=== PATIENT | male | born 1945 | race Caucasian/White ===

== ENCOUNTER 2019-11-17 09:18 | Inpatient (IN) ==
[2019-11-17] MEDS ORDERED: ALBUT/IPRATROP 3MG/0.5MG NEB 3 ML VIAL NEB STA (09:34)
--- NOTE | 2019-11-17 10:11 | XRay Report ---
XR chest 1V portable HISTORY: 74 years-old Male Dyspnea acute shortness of breath COMPARISON: None available TECHNIQUE: Portable AP view of the chest FINDINGS: Cardiomediastinal and hilar silhouettes are within normal limits. Retrocardiac opacity suggests small hiatal hernia. Mild hyperinflation. There is no pneumothorax, large pleural effusion or focal airspa ce consolidation typical for pneumonia. Mild interstitial coarsening, likely on a chronic basis. Dege nerative changes of the shoulders and spine. IMPRESSION: 1. Hyperinflation with mild interstitial coarsening, possibly on a chronic basis. Correlate with prio r imaging. 2. Small hiatal hernia. 3. No definite evidence of pneumonia. ACT 112: Negative or not required by law. The above report was generated using voice recognition software. It may contain grammatical, syntax o r spelling errors. Electronically signed by: Chaim Stevens M.D. 11/17/2019 10:09 AM
[2019-11-17 10:16] LABS: Basophils # (auto) 0.04 K/uL (0-0.2); Basophils % (auto) 0.4 %; Eosinophils # (auto) 0.21 K/uL (0-0.5); Eosinophils % (auto) 2.3 %; Hematocrit (blood only) 46.1 % (42-52); Hemoglobin 15.3 g/dL (14.0-18.0); Immature Granulocytes # (auto) 0.01 K/uL (0.00-0.02); Immature Granulocytes % (auto) 0.1 %; Lymphocytes # (auto) 1.11 K/uL (1.2-3.4); Lymphocytes % (auto) 12.3 %; Mean Corpuscular Hemoglobin 33.5 pg (25-34); Mean Corpuscular Hgb Conc 33.2 g/dL (32-36); Mean Corpuscular Volume 100.9 fL (80-100); Monocytes % (auto) 5.5 %; Neutrophils # (auto) 7.14 K/uL (1.4-6.5); Neutrophils % (auto) 79.4 %; Platelet Count 137 K/uL (130-400); RDW Coefficient of Variation 14.1 % (11.5-14.5); RDW Standard Deviation 52.2 fL (36.4-46.3); Red Blood Count 4.57 M/uL (4.7-6.1); White Blood Count 9.01 K/uL (4.8-10.8)
[2019-11-17 10:20] LABS: Base Excess VBG 1.9 mEq/L; Oxygen Saturation VBG 60.4 %; pH VBG 7.38 (7.36-7.41)
[2019-11-17 10:34] LABS: INR 1.1 (0.9-1.1); Partial Thromboplastin Ratio 0.9; Partial Thromboplastin Time 25.4 Seconds (21.0-31.0); Prothrombin Time 11.2 Seconds (9.0-12.0)
[2019-11-17 10:35] LABS: D Dimer 14540 ug/L FEU (0-500)
[2019-11-17 10:43] LABS: Alanine Aminotransferase 28 U/L (12-78); Albumin Level 3.1 gm/dl (3.4-5.0); Aspartate Aminotransferase 21 U/L (15-37); BUN Creatinine Ratio 20.7 (10-20); Blood Urea Nitrogen 25 mg/dl (7-18); Calcium 8.5 mg/dl (8.5-10.1); Carbon Dioxide 29 mmol/L (21-32); Chloride 108 mmol/L (98-107); Est GFR (African American) 68.6; Est GFR (Non-African American) 59.2; Glucose 173 mg/dl (70-99); Magnesium 2.4 mg/dl (1.8-2.4); Potassium 4.7 mmol/L (3.5-5.1); Sodium 144 mmol/L (136-145)
[2019-11-17 10:52] LABS: Albumin Globulin Ratio 0.9 (0.9-2); Alkaline Phosphatase 63 U/L (45-117); Bilirubin,Total 0.6 mg/dl (0.2-1); Globulin 3.3 gm/dl (2.5-4.0); NT Pro B Type Natriuretic Pept 3269 pg/ml (0-900); Total Protein 6.4 gm/dl (6.4-8.2); Troponin I 0.733 ng/ml (0-0.045)
[2019-11-17] MEDS ORDERED: OPTIRAY 320 125ml IV PRN (11:16)
[2019-11-17] MEDS ORDERED: HEPARIN SOD (PORCINE) 1000 UNIT/ML 10 ML VIAL ONE (11:41)
--- NOTE | 2019-11-17 11:43 | CT Scan Report ---
CT angio chest PE protocol CT DOSE: 936.01 mGy.cm HISTORY: 74 years-old Male with PE. Acute shortness of breath with midsternal chest pain TECHNIQUE: Multiple CTA images of the chest were obtained after the intravenous administration of 120 ml Optiray 320. Coronal and sagittal MIPS were obtained from the axial data set and were submitted for review. All measurements were obtained according to NASCET criteria. A dose lowering technique w as utilized adhering to the principles of ALARA. COMPARISON: Chest radiograph of same day FINDINGS: CTA: Heart is upper limits of normal in size. No pericardial effusion. Coronary arterial and aortic annula r calcifications are present. Left heart structures are not well opacified. No thoracic aortic aneury sm or dissection identified. Moderate mixed plaque of the thoracic aortic arch. Extensive bilateral p ulmonary emboli are noted with emboli involving the distal right main pulmonary artery extending into the lobar, segmental and subsegmental branches throughout the bilateral lungs. Mild straightening of the intraventricular septum suggesting associated right heart strain. CT CHEST: Unremarkable thyroid. Nonspecific mildly prominent subcarinal and right hilar lymph nodes. No pneumot horax or pleural effusion. There is a large thin-walled cystic focus of the basal left lower lobe, 5. 9 x 8.8 cm with prominent adjacent pulmonary arteries. Mild bilateral bronchial wall thickening. Mild emphysema. Linear nodular focus of the left lower lobe on image 112 series 4 may reflect a pulmonary vessel or nodule, indeterminate secondary to respiratory motion artifact. Central airways appear pat ent. Moderate hiatal hernia. Mild wall thickening noted throughout the esophagus. Nonspecific bilateral pe rinephric stranding. Hepatic steatosis. Degenerative changes of the shoulders and spine. IMPRESSION: 1. Extensive bilateral pulmonary emboli as above with associated straightening of the intraventricula r septum suspicious for right heart strain. 2. No pleural effusion or pulmonary infarct identified. 3. Large thin-walled cyst of the basal left lower lobe, 5.9 x 8.8 cm. 4. Moderate hiatal hernia with mild esophageal wall thickening. 5. Hepatic steatosis. ACT 112: Negative or not required by law. The above report was generated using voice recognition software. It may contain grammatical, syntax o r spelling errors. Electronically signed by: Chaim Stevens M.D. 11/17/2019 11:42 AM
[2019-11-17] MEDS ORDERED: SODIUM CHLORIDE 0.9% 1000ML 500 ML IV ONE (11:44)
[2019-11-17] MEDS: HEPARIN SODIUM/DEXTROSE 25,000 UNITS/500 ML BAG IV SCH (11:49)
--- NOTE | 2019-11-17 12:26 | Emergency Department Note ---
Entered by Minda Foy acting as a scribe for Levi Mccarthy DO History of Present Illness General Chief complaint: Shortness of Breath/Dyspnea Stated complaint: SOB,SWEATING Time Seen by Provider: 11/17/19 09:29 Source: patient History of Present Illness Onset (ago): day(s) 2 Location: chest Pain Consistency: + other (persistent) Maximum Pain Intensity: 5 Quality: + other (shortness of breath) Relieved By: not by medication (Inhaler, Spiriva) Exacerbated By: not by movement and not by other (lying flat) Associated symptoms: + denies other symptoms (swelling in legs, weight gain) and + other (cough, brown/clear phlegm, weight loss, chest pressure, burning in esophagus) The patient is a 74 year old male that is presenting to the Emergency Room with complaints of a persistent shortness of breath that started 2 days ago and worsened today. The patient reports that has difficulty breathing and has an associated productive cough. He states that he is coughing up both brown and clear phlegm. He notes that he has a pressure in his chest with some associated burning in his esophagus, which he attributes to his hiatal hernia. He denies that his shortness of breath worsens with exertion or lying flat. He denies any swelling in his legs or recent weight gain. He notes that he has lost weight recently. He denies taking any medications for his chest pain. He states that he has a history of COPD secondary to being a former smoker and uses an inhaler and Spiriva, which did not relieve his symptoms today. He denies using O2 at home. The patient denies having had similar episodes in the past. He states that he has a history of diabetes and notes that his blood glucose reading was 138mg/dL this morning. He notes that he was having difficulty eating and was choking on food due to his hiatal hernia. He states that it was recommended that he have bariatric surgery instead of receiving a mesh. He denies any history of heart attacks or heart failure. The patient nots that he was sweating when he woke up this morning. Home Medications Home Medications Medication Instructions Recorded Confirmed Type albuterol sulfate [Ventolin HFA] 2 puff INHALATION QID PRN 03/25/19 11/17/19 History ascorbic acid (vitamin C) [Vitamin 500 mg PO DAILY 03/25/19 11/17/19 History C] empagliflozin [Jardiance] 25 mg PO QAM 03/25/19 11/17/19 History fluticasone propionate [Flonase 1 spray INTRANASAL QAM 03/25/19 11/17/19 History Allergy Relief] furosemide [Lasix] 20 mg PO DAILY 03/25/19 11/17/19 History insulin asp prt-insulin aspart 25 unit SUBCUT DAILY 03/25/19 11/17/19 History [Novolog Mix 70-30 U-100 Insuln] linagliptin [Tradjenta] 5 mg PO QAM 03/25/19 11/17/19 History losartan 100 mg PO QAM 03/25/19 11/17/19 History omega 2-ohl-els-fish oil [Fish Oil] 1 cap PO DAILY 03/25/19 11/17/19 History omeprazole magnesium [Prilosec OTC] 20 mg PO QAM 03/25/19 11/17/19 History polyethylene glycol 3350 [Miralax] 17 g PO DAILY PRN 03/25/19 11/17/19 History ranitidine HCl 150 mg PO HS 03/25/19 11/17/19 History simvastatin 40 mg PO PM 03/25/19 11/17/19 History tamsulosin [Flomax] 0.4 mg PO DAILY 03/25/19 11/17/19 History tiotropium bromide [Spiriva with 1 cap INHALATION QAM 03/25/19 11/17/19 History HandiHaler] zinc 50 mg PO DAILY 03/25/19 11/17/19 History fluticasone furoate-vilanterol 1 inh INHALATION BID 11/17/19 11/17/19 History [Breo Ellipta] insulin asp prt-insulin aspart 30 unit SUBCUT HS 11/17/19 11/17/19 History [Novolog Mix 70-30FlexPen U-100] Allergies Allergy/AdvReac Type Severity Reaction Status Date / Time Penicillins Allergy Intermediate Hives Verified 11/17/19 10:34 adhesive tape Allergy Mild WATER Verified 11/17/19 10:34 BLISTERS latex Allergy Mild WATER Verified 11/17/19 10:34 BLISTERS Past Med/Surg History Medical History BPH (benign prostatic hyperplasia) COPD (chronic obstructive pulmonary disease) Diabetes mellitus, type 2 GERD (gastroesophageal reflux disease) Hyperlipidemia Hypertension Osteoarthritis Paraesophageal hernia Restless leg syndrome Surgical History History of anesthesia reaction JUMPY ARMS AFTER ANESTHESIA PER PT History of cataract surgery RT History of cholecystectomy History of colonoscopy History of endoscopic sinus surgery History of tooth extraction Family History Mother Family history of diabetes mellitus Sister Family history of diabetes mellitus Social History Preferred Language: Japanese Communication Ability: 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 and A total of 10 systems reviewed and were otherwise negative Physical Exam Vital Signs Vital Signs - 24 hr 11/17/19 09:25 11/17/19 09:36 11/17/19 10:00 Temperature 36.4 C L Temperature Source Oral Pulse Rate 107 H 101 H 100 H Pulse Rate [Right Radial] Pulse Rate from SpO2 Sensor 101 H 92 H Respiratory Rate 20 19 11 L Respiratory Effort / Characteristics Non-Labored Spontaneous Respiratory Depth Normal Blood Pressure 124/89 136/81 119/80 Blood Pressure [Left Arm] Blood Pressure Mean 100 100 86 Blood Pressure Mean [Left Arm] Blood Pressure Position Sitting Pulse Oximetry 89 L 97 98 Oxygen Delivery Method Room Air Nasal Cannula Nasal Cannula Oxygen Flow Rate 2 2 Sepsis Recent Fever Within 48 Hours No Sepsis Action Taken by Nursing No Action Required 11/17/19 10:01 11/17/19 10:09 11/17/19 10:15 Temperature Temperature Source Pulse Rate 100 H 100 H 96 H Pulse Rate [Right Radial] 99 H Pulse Rate from SpO2 Sensor 99 H 83 Respiratory Rate 12 18 12 Respiratory Effort / Characteristics Non-Labored Spontaneous Respiratory Depth Blood Pressure Blood Pressure [Left Arm] Blood Pressure Mean Blood Pressure Mean [Left Arm] Blood Pressure Position Pulse Oximetry 97 95 95 Oxygen Delivery Method Nasal Cannula Nasal Cannula Oxygen Flow Rate 2 Sepsis Recent Fever Within 48 Hours Sepsis Action Taken by Nursing 11/17/19 10:26 11/17/19 10:30 11/17/19 10:31 Temperature Temperature Source Pulse Rate 96 H 96 H Pulse Rate [Right Radial] 96 H Pulse Rate from SpO2 Sensor 87 93 H Respiratory Rate 18 25 H 19 Respiratory Effort / Characteristics Non-Labored Spontaneous Respiratory Depth Normal Blood Pressure 101/70 Blood Pressure [Left Arm] 124/89 Blood Pressure Mean 83 Blood Pressure Mean [Left Arm] 100 Blood Pressure Position Pulse Oximetry 96 96 96 Oxygen Delivery Method Nasal Cannula Oxygen Flow Rate 2 Sepsis Recent Fever Within 48 Hours Sepsis Action Taken by Nursing 11/17/19 10:45 11/17/19 11:00 11/17/19 11:01 Temperature Temperature Source Pulse Rate 96 H 95 H 94 H Pulse Rate [Right Radial] Pulse Rate from SpO2 Sensor 96 H 86 90 Respiratory Rate 18 22 17 Respiratory Effort / Characteristics Respiratory Depth Blood Pressure 105/66 Blood Pressure [Left Arm] Blood Pressure Mean 81 Blood Pressure Mean [Left Arm] Blood Pressure Position Pulse Oximetry 95 95 96 Oxygen Delivery Method Oxygen Flow Rate Sepsis Recent Fever Within 48 Hours Sepsis Action Taken by Nursing 11/17/19 11:27 11/17/19 11:30 11/17/19 11:31 Temperature Temperature Source Pulse Rate 97 H 94 H 93 H Pulse Rate [Right Radial] Pulse Rate from SpO2 Sensor 94 H 92 H Respiratory Rate 21 18 21 Respiratory Effort / Characteristics Respiratory Depth Blood Pressure 112/85 Blood Pressure [Left Arm] Blood Pressure Mean 98 Blood Pressure Mean [Left Arm] Blood Pressure Position Pulse Oximetry 96 97 Oxygen Delivery Method Oxygen Flow Rate Sepsis Recent Fever Within 48 Hours Sepsis Action Taken by Nursing 11/17/19 11:45 11/17/19 12:00 Temperature Temperature Source Pulse Rate 95 H 95 H Pulse Rate [Right Radial] Pulse Rate from SpO2 Sensor 95 H 91 H Respiratory Rate 15 19 Respiratory Effort / Characteristics Respiratory Depth Blood Pressure 127/83 Blood Pressure [Left Arm] Blood Pressure Mean 94 Blood Pressure Mean [Left Arm] Blood Pressure Position Pulse Oximetry 97 97 Oxygen Delivery Method Nasal Cannula Oxygen Flow Rate 2 Sepsis Recent Fever Within 48 Hours Sepsis Action Taken by Nursing GENERAL: Patient is awake, alert, and somewhat anxious appearing. EYES: The conjunctivae are clear. The pupils are round and reactive. EARS, NOSE, MOUTH AND THROAT: The nose is without any evidence of any deformity. Mucous membranes are moist.Tongue is midline NECK: The neck is nontender and supple. RESPIRATORY: Diminished throughout. Scattered expiratory wheezing in both upper lung head. Mild conversational dyspnea noted. CARDIOVASCULAR: Heart sounds are very distant. Regular rate and rhythm noted to auscultation. GASTROINTESTINAL: The abdomen is soft. Bowel sounds are present in all quadrants. Abdomen is nontender. MUSCULOSKELETAL/EXTREMITIES: There is no evidence of gross deformity. Full range of motion is noted in the hips and shoulders. SKIN: There is no obvious evidence of any rash. There are no petechiae, pallor or cyanosis noted. Pedal edema bilaterally. Warm and dry. NEUROLOGIC: Patient is awake alert and oriented x3. Strength is symmetric. Patellar reflexes are 2+ bilaterally. Course Course 0931:The patient was evaluated in room C04. A complete history and physical examination was performed. 1042: I updated the patient on his current lab and imaging results. A CT chest has been ordered due to the patients elevated D-dimer. 1127: I updated the patient on his current lab and imaging results. Heparin has been ordered. 1130: I discussed the patients case with AHSAN Day, who will evaluate the patient for further management and care with Dr. Nino as the attending physician. 1140: Upon reevaluation, the patient is resting comfortably. I discussed laboratory and radiographic results with the patient. He verbalized agreement of the treatment plan. The patient will be evaluated for further management and care. Administered Medications Albuterol (Duoneb) 3 ml NEB QIDR [facility] Stop: 12/17/19 14:59 Last Admin: 11/18/19 07:13 Dose: 3 ml Documented by: [id number] Admin: 11/17/19 19:17 Dose: 3 ml Documented by: [id number] Admin: 11/17/19 15:50 Dose: 3 ml Documented by: [id number] Famotidine (Pepcid) 20 mg PO HS MITC[facility] Stop: 12/17/19 20:59 Last Admin: 11/17/19 19:58 Dose: 20 mg Documented by: [id number] Fish Oil (Zephyr-3 (Purified Fish Oil)) 1 gm PO DAILY MIT[facility] Stop: 12/18/19 08:59 Last Admin: 11/18/19 08:13 Dose: 1 gm Documented by: [id number] Furosemide (Lasix) 20 mg PO DAILY [facility] Stop: 12/18/19 08:59 Last Admin: 11/18/19 08:16 Dose: 20 mg Documented by: [id number] Heparin Sodium/Dextrose (Heparin Sodium/Dextrose) 25,000 units in 500 mls @ 35 mls/hr IV .[id number] [facility]; Protocol Stop: 12/17/19 11:29 Last Titration: 11/18/19 07:10 Dose: 1,750 units/hr, 35 mls/hr Documented by: [id number] Cosigned by: [id number] Titration: 11/18/19 01:30 Dose: 1,750 units/hr, 35 mls/hr Documented by: [id number] Cosigned by: [id number] Admin: 11/18/19 00:57 Dose: 1,750 units/hr, 35 mls/hr Documented by: [id number] Cosigned by: [id number] Titration: 11/18/19 00:57 Dose: 1,750 units/hr, 35 mls/hr Documented by: [id number] Cosigned by: [id number] Titration: 11/17/19 19:06 Dose: 1,750 units/hr, 35 mls/hr Documented by: [id number] Cosigned by: [id number] Titration: 11/17/19 18:43 Dose: 1,750 units/hr, 35 mls/hr Documented by: [id number] Cosigned by: [id number] Admin: 11/17/19 11:49 Dose: 1,950 units/hr, 39 mls/hr Documented by: [id number] Cosigned by: [id number] Insulin Aspart (Novolog Flexpen) 0 units SC ACHS [facility] Stop: 12/17/19 16:29 Last Admin: 11/18/19 08:07 Dose: 2 units Documented by: [id number] Cosigned by: [id number] Admin: 11/17/19 20:00 Dose: Not Given Documented by: [id number] Cosigned by: [id number] Admin: 11/17/19 16:53 Dose: 3 units Documented by: [id number] Cosigned by: [id number] Insulin Human NPH (Novolin N Nph) 14 units SC BID [facility] Stop: 12/17/19 20:59 Last Admin: 11/18/19 08:08 Dose: 14 units Documented by: [id number] Cosigned by: [id number] Admin: 11/17/19 20:01 Dose: 14 units Documented by: [id number] Cosigned by: [id number] Losartan Potassium (Cozaar) 100 mg PO QAM [facility] Stop: 12/18/19 08:59 Last Admin: 11/18/19 08:17 Dose: 100 mg Documented by: [id number] Pantoprazole Sodium (Protonix) 40 mg PO QAM [facility]; Protocol Stop: 12/18/19 08:59 Last Admin: 11/18/19 08:13 Dose: 40 mg Documented by: [id number] Fluticasone/Salmeterol (Advair Diskus 100/50) 1 puffs INH BID [facility]; Protocol Stop: 12/17/19 20:59 Last Admin: 11/18/19 08:10 Dose: 1 puffs Documented by: [id number] Admin: 11/17/19 19:56 Dose: 1 puffs Documented by: [id number] Simvastatin (Zocor) 40 mg PO PM [facility] Stop: 12/17/19 20:59 Last Admin: 11/17/19 19:58 Dose: 40 mg Documented by: [id number] Tamsulosin HCl (Flomax) 0.4 mg PO DAILY [facility] Stop: 12/18/19 08:59 Last Admin: 11/18/19 08:13 Dose: 0.4 mg Documented by: [id number] Tiotropium [place] (Spiriva) 1 puffs INH QAM [facility] Stop: 12/18/19 08:59 Last Admin: 11/18/19 08:11 Dose: 1 puffs Documented by: [id number] Discontinued Medications Albuterol (Duoneb) 3 ml NEB NOW STA Stop: 11/17/19 09:35 Last Admin: 11/17/19 10:00 Dose: 3 ml Documented by: [id number] Heparin Sodium (Porcine) (Heparin Iv Bolus) Confirm Administered Dose 10,000 units .ROUTE .STK-MED ONE Stop: 11/17/19 11:42 Last Admin: 11/17/19 11:46 Dose: 9,000 units Documented by: [id number] Cosigned by: [id number] Heparin Sodium/Dextrose () 1 ea IV NOW STA; Protocol Stop: 11/17/19 11:29 Last Admin: 11/17/19 11:50 Dose: Not Given Documented by: [id number] Heparin Sodium/Dextrose () 1 ea IV Q15M [facility]; Protocol Stop: 12/17/19 14:59 Last Admin: 11/17/19 16:25 Dose: Not Given Documented by: [id number] Admin: 12/29/19 16:25 Dose: Not Given Documented by: [id number] Admin: 11/17/19 16:25 Dose: Not Given Documented by: [id number] Admin: 11/17/19 16:24 Dose: Not Given Documented by: [id number] Admin: 11/17/19 16:24 Dose: Not Given Documented by: [id number] Sodium Chloride (Nss 1000ml) 500 mls @ 999 mls/hr IV .Q31M ONE Stop: 11/17/19 12:14 Last Infusion: 11/17/19 15:17 Dose: 0 mls/hr Documented by: [id number] Admin: 11/17/19 11:54 Dose: 999 mls/hr Documented by: [id number] Ioversol (Optiray 320 125ml) 120 ml IV ONCE PRN PRN Reason: Interaction Checking Stop: 11/21/19 11:15 Last Admin: 11/17/19 11:16 Dose: 120 ml Documented by: [id number] Warfarin Sodium (Coumadin) 10 mg PO ONE ONE Stop: 11/17/19 21:01 Last Admin: 11/17/19 19:58 Dose: 10 mg Documented by: [id number] Critical Care Time Critical Care Time: Yes Total Critical Care Time: 60 I have personally spent greater than 60 minutes of critical care time in the direct management of this patient. This includes bedside care, interpretation of diagnostic studies, and testing, discussion with consultants, patient, and family members, and other required patient management activities. This 60 minutes is in excess of all separately billable procedures. Medical Decision Making Differential Diagnosis Differential diagnoses includes but is not limited to pneumonia, bronchitis, COPD/Asthma exacerbation, pneumothorax, pulmonary embolism, congestive heart failure, acute coronary syndrome. Medical Records Attestation: I reviewed the patient's medical records. Home Medications Current Medication List: was personally reviewed by me Laboratory Data Attestation: I reviewed the patient's lab results. Result diagrams: 11/18/19 05:59 11/18/19 05:59 Lab Results 11/17/19 11/17/19 11/17/19 Range/Units 10:05 10:05 10:05 WBC 9.01 (4.8-10.8) K/uL RBC 4.57 L (4.7-6.1) M/uL Hgb 15.3 (14.0-18.0) g/dL Hct 46.1 (42-52) % MCV 100.9 H (80-100) fL MCH 33.5 (25-34) pg MCHC 33.2 (32-36) g/dL RDW Std Deviation 52.2 H (36.4-46.3) fL RDW Coeff of Jake 14.1 (11.5-14.5) % Plt Count 137 (130-400) K/uL MPV 11.0 H (7.4-10.4) fL Immature Gran % (Auto) 0.1 % Neut % (Auto) 79.4 % Lymph % (Auto) 12.3 % Rankin % (Auto) 5.5 % Eos % (Auto) 2.3 % Baso % (Auto) 0.4 % Immature Gran # (Auto) 0.01 (0.00-0.02) K/uL Neut # (Auto) 7.14 H (1.4-6.5) K/uL Lymph # (Auto) 1.11 L (1.2-3.4) K/uL Rankin # (Auto) 0.50 (0.11-0.59) K/uL Eos # (Auto) 0.21 (0-0.5) K/uL Baso # (Auto) 0.04 (0-0.2) K/uL PT 11.2 (9.0-12.0) Seconds INR 1.1 (0.9-1.1) APTT 25.4 (21.0-31.0) Seconds PTT Ratio 0.9 D-Dimer 18288 H* (0-500) ug/L FEU VBG pH (7.36-7.41) VBG pCO2 (38-50) mmHg VBG pO2 mmHg VBG HCO3 mmol/L VBG O2 Saturation % VBG Base Excess mEq/L Barometric Pressure mm/Hg Sodium 144 (136-145) mmol/L Potassium 4.7 (3.5-5.1) mmol/L Chloride 108 H (98-107) mmol/L Carbon Dioxide 29 (21-32) mmol/L Anion Gap 7.0 (3-11) BUN 25 H (7-18) mg/dl Creatinine 1.20 (0.6-1.4) mg/dl Est Cr Clr Drug Dosing Not Reportable Est GFR ( Amer) 68.6 Est GFR (Non-Af Amer) 59.2 BUN/Creatinine Ratio 20.7 H (10-20) Glucose 173 H (70-99) mg/dl Calcium 8.5 (8.5-10.1) mg/dl Magnesium 2.4 (1.8-2.4) mg/dl Total Bilirubin 0.6 (0.2-1) mg/dl AST 21 (15-37) U/L ALT 28 (12-78) U/L Alkaline Phosphatase 63 (45-117) U/L Troponin I 0.733 H* (0-0.045) ng/ml NT-Pro-B Natriuret Pep 3269 H (0-900) pg/ml Total Protein 6.4 (6.4-8.2) gm/dl Albumin 3.1 L (3.4-5.0) gm/dl Globulin 3.3 (2.5-4.0) gm/dl Albumin/Globulin Ratio 0.9 (0.9-2) TSH 1.090 (0.300-4.500) uIu/ml 11/17/19 11/17/19 Range/Units 10:05 10:05 WBC (4.8-10.8) K/uL RBC (4.7-6.1) M/uL Hgb (14.0-18.0) g/dL Hct (42-52) % MCV (80-100) fL MCH (25-34) pg MCHC (32-36) g/dL RDW Std Deviation (36.4-46.3) fL RDW Coeff of Jake (11.5-14.5) % Plt Count (130-400) K/uL MPV (7.4-10.4) fL Immature Gran % (Auto) % Neut % (Auto) % Lymph % (Auto) % Rankin % (Auto) % Eos % (Auto) % Baso % (Auto) % Immature Gran # (Auto) (0.00-0.02) K/uL Neut # (Auto) (1.4-6.5) K/uL Lymph # (Auto) (1.2-3.4) K/uL Rankin # (Auto) (0.11-0.59) K/uL Eos # (Auto) (0-0.5) K/uL Baso # (Auto) (0-0.2) K/uL PT (9.0-12.0) Seconds INR (0.9-1.1) APTT (21.0-31.0) Seconds PTT Ratio D-Dimer (0-500) ug/L FEU VBG pH 7.38 (7.36-7.41) VBG pCO2 48 (38-50) mmHg VBG pO2 33 mmHg VBG HCO3 28 mmol/L VBG O2 Saturation 60.4 % VBG Base Excess 1.9 mEq/L Barometric Pressure 735.6 mm/Hg Sodium (136-145) mmol/L Potassium (3.5-5.1) mmol/L Chloride (98-107) mmol/L Carbon Dioxide (21-32) mmol/L Anion Gap (3-11) BUN (7-18) mg/dl Creatinine (0.6-1.4) mg/dl Est Cr Clr Drug Dosing Est GFR ( Amer) Est GFR (Non-Af Amer) BUN/Creatinine Ratio (10-20) Glucose (70-99) mg/dl Calcium (8.5-10.1) mg/dl Magnesium (1.8-2.4) mg/dl Total Bilirubin (0.2-1) mg/dl AST (15-37) U/L ALT (12-78) U/L Alkaline Phosphatase (45-117) U/L Troponin I (0-0.045) ng/ml NT-Pro-B Natriuret Pep (0-900) pg/ml Total Protein (6.4-8.2) gm/dl Albumin (3.4-5.0) gm/dl Globulin (2.5-4.0) gm/dl Albumin/Globulin Ratio (0.9-2) TSH Cancelled (0.300-4.500) uIu/ml Imaging Data Radiologist's Impression: Radiology results as stated below per my review and the radiologist's interpretation: XR chest 1V portable HISTORY: 74 years-old Male Dyspnea acute shortness of breath COMPARISON: None available TECHNIQUE: Portable AP view of the chest FINDINGS: Cardiomediastinal and hilar silhouettes are within normal limits. Retrocardiac opacity suggests small hiatal hernia. Mild hyperinflation. There is no pneumothorax, large pleural effusion or focal airspace consolidation typical for pneumonia. Mild interstitial coarsening, likely on a chronic basis. Degenerative changes of the shoulders and spine. IMPRESSION: 1. Hyperinflation with mild interstitial coarsening, possibly on a chronic basis. Correlate with prior imaging. 2. Small hiatal hernia. 3. No definite evidence of pneumonia. ACT 112: Negative or not required by law. The above report was generated using voice recognition software. It may contain grammatical, syntax or spelling errors. Electronically signed by: Chaim Stevens M.D. 11/17/2019 10:[address] angio chest PE protocol CT DOSE: 936.01 mGy.cm HISTORY: 74 years-old Male with PE. Acute shortness of breath with midsternal chest pain TECHNIQUE: Multiple CTA images of the chest were obtained after the intravenous administration of 120 ml Optiray 320. Coronal and sagittal MIPS were obtained from the axial data set and were submitted for review. All measurements were obtained according to NASCET criteria. A dose lowering technique was utilized adhering to the principles of ALARA. COMPARISON: Chest radiograph of same day FINDINGS: CTA: Heart is upper limits of normal in size. No pericardial effusion. Coronary arterial and aortic annular calcifications are present. Left heart structures are not well opacified. No thoracic aortic aneurysm or dissection identified. Moderate mixed plaque of the thoracic aortic arch. Extensive bilateral pulmonary emboli are noted with emboli involving the distal right main pulmonary artery extending into the lobar, segmental and subsegmental branches throughout the bilateral lungs. Mild straightening of the intraventricular septum suggesting associated right heart strain. CT CHEST: Unremarkable thyroid. Nonspecific mildly prominent subcarinal and right hilar lymph nodes. No pneumothorax or pleural effusion. There is a large thin-walled cystic focus of the basal left lower lobe, 5.9 x 8.8 cm with prominent adjacent pulmonary arteries. Mild bilateral bronchial wall thickening. Mild emphysema. Linear nodular focus of the left lower lobe on image 112 series 4 may reflect a pulmonary vessel or nodule, indeterminate secondary to respiratory motion artifact. Central airways appear patent. Moderate hiatal hernia. Mild wall thickening noted throughout the esophagus. Nonspecific bilateral perinephric stranding. Hepatic steatosis. Degenerative changes of the shoulders and spine. IMPRESSION: 1. Extensive bilateral pulmonary emboli as above with associated straightening of the intraventricular septum suspicious for right heart strain. 2. No pleural effusion or pulmonary infarct identified. 3. Large thin-walled cyst of the basal left lower lobe, 5.9 x 8.8 cm. 4. Moderate hiatal hernia with mild esophageal wall thickening. 5. Hepatic steatosis. ACT 112: Negative or not required by law. The above report was generated using voice recognition software. It may contain grammatical, syntax or spelling errors. Electronically signed by: Chaim Stevens M.D. 11/17/2019 11:42 AM ECG Data Attestation: I personally reviewed and interpreted this ECG as follows: Indication: + SOB/dyspnea Rate (beats per minute): 108 Rhythm: + sinus tachycardia ECG ST segments: no ST depression and no ST elevation ECG Findings: + PVCs and + Other (Low voltage noted throughout) Comparison ECG Date: no prior available Blood Pressure Blood Pressure Findings: Elevated blood pressure Blood Pressure Disposition: Referred to patients primary care provider MDM Narrative The patient is a 74-year-old male who presented to the emergency department for an evaluation of difficulty breathing. The patient was found to have hypoxia and was brought directly to room C4. The patient was treated with bronchodilator therapy. His EKG did show low voltage. He was not significantly tachycardic. Because of the patient's hypoxia a d-dimer was obtained. This did reveal a significant elevation. I discussed the patient's laboratory and radiographic studies with him. CT of the chest did reveal pulmonary embolism which was bilateral and significant. There is also some signs of heart strain with an elevated troponin and findings on CT. The patient was started on IV heparin. I discussed his case with the on-call [facility] hospitalist group. They have agreed to evaluate the patient in the emergency department for further management and disposition. Impression & Plan Pulmonary embolism, Hypoxia, Shortness of breath Discharge Plan Visit Data *Final* Discharge Date/Time: 11/17/19 13:25 Chief Complaint: Shortness of Breath/Dyspnea Stated Complaint: SOB,SWEATING ED Provider: Levi Mccarthy Discharge Problem: Pulmonary embolism, Hypoxia, Shortness of breath Patient Disposition: Admitted As Inpatient Discharge Instructions Interventions: ED Discharge Assessment Last Done: 11/17/19 13:25 The scribe's documentation has been prepared under my direction and personally reviewed by me in its entirety. I confirm that the note above accurately reflects all work, treatment, procedures, and medical decision making performed by me.
[2019-11-17] MEDS ORDERED: POLYETHYLENE (MIRALAX) 17 GM PACK PO PRN (14:24)
[2019-11-17] MEDS ORDERED: GLUCOSE 10 TABS/TUBE PO PRN (14:24)
[2019-11-17] MEDS ORDERED: DEXTROSE 50% 50 ML SYRINGE IV PRN (14:24)
[2019-11-17] MEDS ORDERED: GLUCOSE 40% GEL 15 GM TUBE PO PRN (14:24)
[2019-11-17] MEDS ORDERED: CARBOHYDRATES FOR HYPOGLYCEMIA PO PRN (14:24)
[2019-11-17] MEDS ORDERED: GLUCAGON FOR INJ 1 MG VIAL SQ PRN (14:24)
[2019-11-17] MEDS ORDERED: ACETAMINOPHEN 325 MG TAB PO PRN (14:24)
--- NOTE | 2019-11-17 14:52 | History & Physical Report ---
Date of Service November 17, 2019 Assessment & Plan (1) Bilateral pulmonary embolism: (2) Hypoxia: -Admit to telemetry -Patient presenting from home with exertional shortness of breath -In the ED, CTA chest showing extensive bilateral pulmonary embolism -Initially saturating 89% on room air, which improved with 2L of oxygen via nasal cannula -Started on heparin drip in the ED, which will be continued with transition to Coumadin (will give first dose tonight); NOACs/Lovenox injections likely not an option due to patient's BMI -No provoking risk factors identified -Check BLLE venous Doppler -Echo to evaluate for right heart strain -Ensure routine cancer surveillance up-to-date (had colonoscopy in 2014 with adenomatous polyp, follow-up in 3 years was recommended however has not been completed yet) (3) Elevated troponin: -Initial troponin 0.733 -Likely secondary to right heart strain from acute bilateral pulmonary embolism -Continue cycle cardiac enzymes, check resting echo (4) Lung cyst: -CT chest shows large left lower lobe walled off cyst -will need outpatient follow-up with pulmonary (5) Diabetes mellitus, type 2: -Hgb A1c 6.4 09/2019 -Hold home 70/30 insulin and oral agents -will place on NPH twice daily and NovoLog per protocol while hospitalized (6) COPD (chronic obstructive pulmonary disease): -Has some mild wheezing on exam -Hypoxia likely secondary to bilateral pulmonary embolism -will start routine nebulizers, hold on steroids for now (7) Hypertension: -BP controlled, continue losartan (8) Hyperlipidemia: -Continue statin (9) GERD (gastroesophageal reflux disease): -Continue PPI and H2 lizy (10) BPH (benign prostatic hyperplasia): -Continue tamsulosin (11) DVT prophylaxis: -On IV heparin drip History of Present Illness Chief Complaint: Shortness of breath Primary Care Provider: Oswaldo Fatima DO 74-year-old male who presents the ED for evaluation of shortness of breath. Patient reports his symptoms began 2 days ago. He reports shortness of breath with minimal exertion which has been progressively getting worse. No shortness of breath at rest. He reports a persistent epigastric/lower chest pressure for the past several months was a secondary to hernia and unchanged. Patient reports chronic lower extremity edema, left greater than right which is normally managed with compression stockings. No cough or sputum production. Denies lightheadedness, dizziness, diaphoresis. No abdominal pain, nausea, vomiting, diarrhea. Denies any other recent illnesses, fevers, chills. No urinary symptoms. Patient denies any recent prolonged travel. No family history of blood clots. Patient does note that he has been rather sedentary in the cooler months. In the ED, CTA chest is showing extensive bilateral pulmonary embolism with right heart strain. Patient was mildly hypoxic on room air at 89% which improved with oxygen 2 L via nasal cannula. Patient was started on a heparin drip. He was also given a nebulizer treatment. Allergies Allergy/AdvReac Type Severity Reaction Status Date / Time Penicillins Allergy Intermediate Hives Verified 11/17/19 10:34 adhesive tape Allergy Mild WATER Verified 11/17/19 10:34 BLISTERS latex Allergy Mild WATER Verified 11/17/19 10:34 BLISTERS Home Medications Home Medications Medication Instructions Recorded Confirmed Type albuterol sulfate [Ventolin HFA] 2 puff INHALATION QID PRN 03/25/19 11/17/19 History ascorbic acid (vitamin C) [Vitamin 500 mg PO DAILY 03/25/19 11/17/19 History C] empagliflozin [Jardiance] 25 mg PO QAM 03/25/19 11/17/19 History fluticasone propionate [Flonase 1 spray INTRANASAL QAM 03/25/19 11/17/19 History Allergy Relief] furosemide [Lasix] 20 mg PO DAILY 03/25/19 11/17/19 History insulin asp prt-insulin aspart 25 unit SUBCUT DAILY 03/25/19 11/17/19 History [Novolog Mix 70-30 U-100 Insuln] linagliptin [Tradjenta] 5 mg PO QAM 03/25/19 11/17/19 History losartan 100 mg PO QAM 03/25/19 11/17/19 History omega 0-jxh-mhw-fish oil [Fish Oil] 1 cap PO DAILY 03/25/19 11/17/19 History omeprazole magnesium [Prilosec OTC] 20 mg PO QAM 03/25/19 11/17/19 History polyethylene glycol 3350 [Miralax] 17 g PO DAILY PRN 03/25/19 11/17/19 History ranitidine HCl 150 mg PO HS 03/25/19 11/17/19 History simvastatin 40 mg PO PM 03/25/19 11/17/19 History tamsulosin [Flomax] 0.4 mg PO DAILY 03/25/19 11/17/19 History tiotropium bromide [Spiriva with 1 cap INHALATION QAM 03/25/19 11/17/19 History HandiHaler] zinc 50 mg PO DAILY 03/25/19 11/17/19 History fluticasone furoate-vilanterol 1 inh INHALATION BID 11/17/19 11/17/19 History [Breo Ellipta] insulin asp prt-insulin aspart 30 unit SUBCUT HS 11/17/19 11/17/19 History [Novolog Mix 70-30FlexPen U-100] Past Med/Surg History Medical History BPH (benign prostatic hyperplasia) COPD (chronic obstructive pulmonary disease) Diabetes mellitus, type 2 GERD (gastroesophageal reflux disease) Hyperlipidemia Hypertension Osteoarthritis Paraesophageal hernia Restless leg syndrome Surgical History History of anesthesia reaction JUMPY ARMS AFTER ANESTHESIA PER PT History of cataract surgery RT History of cholecystectomy History of colonoscopy History of endoscopic sinus surgery History of tooth extraction Family History Mother Family history of diabetes mellitus Sister Family history of diabetes mellitus Social History Preferred Language: Arabic Communication Ability: Effective Pump Assembler Required: No Beliefs That Will Affect Care: None Current Living Situation: Family Current Living Situation Comment: LIVES WITH SON Other Information That Helps Us Care for You: No Feels Safe at Home: Yes Safety Concerns: Feels Safe At This Time Smoking Status: Unknown if ever smoked Hx Alcohol Use: No Hx Substance Use: No Review of Systems Review of Systems: ROS per HPI, all other systems reviewed and negative Physical Exam Constitutional: WD/WN, vitals as above no acute distress Eyes: PERRL, conjunctivae normal, anicteric sclerae ENMT: external ear and nose normal, oropharynx normal Respiratory: normal respiratory effort; no respiratory distress Auscultation: + diminished lung sounds and + wheezes (Faint, bilateral bases) Cardiovascular: Rate/Rhythm: regular rate and regular rhythm Vessels: normal peripheral pulses Extremities: + edema (+1 edema RLE, +2 edema LLE) Gastrointestinal (Abdomen): normal bowel sounds, soft, nontender, no hepatosplenomegaly Musculoskeletal: no cyanosis or clubbing, extremities motor strength 5/5 Skin: no rashes, warm and dry Neurologic: PERRL, EOMI, accommodation nl, no face palsy, no dysarthria Psychiatric: A+Ox3, euthymic affect Results & Data Vital Signs (Past 12 Hours) Vital Signs Temp Pulse Pulse Resp BP BP Pulse Ox 11/17/19 13:00 94 H 18 129/76 97 11/17/19 12:32 102 H 17 149/88 H 93 11/17/19 12:00 95 H 19 127/83 97 11/17/19 11:45 95 H 15 97 11/17/19 11:31 93 H 21 97 11/17/19 11:30 94 H 18 112/85 96 11/17/19 11:27 97 H 21 11/17/19 11:01 94 H 17 96 11/17/19 11:00 95 H 22 105/66 95 11/17/19 10:45 96 H 18 95 11/17/19 10:31 96 H 19 96 11/17/19 10:30 96 H 25 H 101/70 96 11/17/19 10:26 96 H 18 124/89 96 11/17/19 10:15 96 H 12 95 11/17/19 10:09 100 H 18 95 11/17/19 10:01 100 H 99 H 12 97 11/17/19 10:00 100 H 11 L 119/80 98 11/17/19 09:36 101 H 19 136/81 97 11/17/19 09:25 36.4 C L 107 H 20 124/89 89 L Laboratory Results Short CBC 11/17/19 Range/Units 10:05 WBC 9.01 (4.8-10.8) K/uL Hgb 15.3 (14.0-18.0) g/dL Hct 46.1 (42-52) % Plt Count 137 (130-400) K/uL BMP 11/17/19 10:05 Sodium 144 Potassium 4.7 Chloride 108 H Carbon Dioxide 29 BUN 25 H Creatinine 1.20 Glucose 173 H Calcium 8.5 Cardiac Enzymes 11/17/19 Range/Units 10:05 Troponin I 0.733 H* (0-0.045) ng/ml Liver Function 11/17/19 Range/Units 10:05 Total Bilirubin 0.6 (0.2-1) mg/dl AST 21 (15-37) U/L ALT 28 (12-78) U/L Alkaline Phosphatase 63 (45-117) U/L Albumin 3.1 L (3.4-5.0) gm/dl Diagnostic Findings CHEST CTA IMPRESSION: 1. Extensive bilateral pulmonary emboli as above with associated straightening of the intraventricular septum suspicious for right heart strain. 2. No pleural effusion or pulmonary infarct identified. 3. Large thin-walled cyst of the basal left lower lobe, 5.9 x 8.8 cm. 4. Moderate hiatal hernia with mild esophageal wall thickening. 5. Hepatic steatosis. CXR IMPRESSION: 1. Hyperinflation with mild interstitial coarsening, possibly on a chronic basis. Correlate with prior imaging. 2. Small hiatal hernia. 3. No definite evidence of pneumonia. Code Status & VTE Plan Code Status Patient is a full code as per my discussion with him. VTE Prophylaxis Plan VTE Prophylaxis will be ordered: Yes Supervising Physician Co-Signing Physician Notes HISTORY: Record reviewed. Patient interviewed and examined. Care coordinated with AHSAN Day. Please refer to her documentation for complete history. Briefly, 74 YO male with history of COPD, hypertension, DM, and other problems. Presented to ED with 2 day history of worsening SOB. No angina or pleuritic chest pain. No fever or cough. EXAM: General- no distress Lungs- clear to auscultation; no respiratory distress Cardiovascular- RRR; no murmur appreciated; + JVD; trace pretibial edema Abdomen- + bowel sounds, soft, nontender Extremities- no cyanosis; no calf tenderness Neuro- alert, oriented Skin- warm & dry DATA: Hgb 15.3, WBC 9010, plts 137,000. D-dimer 14,540. BUN 25, creatinine 1.2, random glucose 173. Other lab studies as noted. Chest x-ray reviewed by undersigned and formally interpreted by Radiology: FINDINGS: Cardiomediastinal and hilar silhouettes are within normal limits. Retrocardiac opacity suggests small hiatal hernia. Mild hyperinflation. There is no pneumothorax, large pleural effusion or focal airspace consolidation typical for pneumonia. Mild interstitial coarsening, likely on a chronic basis. Degenerative changes of the shoulders and spine. IMPRESSION: 1. Hyperinflation with mild interstitial coarsening, possibly on a chronic basis. Correlate with prior imaging. 2. Small hiatal hernia. 3. No definite evidence of pneumonia. ACT 112: Negative or not required by law. The above report was generated using voice recognition software. It may contain grammatical, syntax or spelling errors. Electronically signed by: Chaim Stevens M.D. 11/17/2019 10:09 AM CTA chest per Radiology: FINDINGS: CTA: Heart is upper limits of normal in size. No pericardial effusion. Coronary arterial and aortic annular calcifications are present. Left heart structures are not well opacified. No thoracic aortic aneurysm or dissection identified. Moderate mixed plaque of the thoracic aortic arch. Extensive bilateral pulmonary emboli are noted with emboli involving the distal right main pulmonary artery extending into the lobar, segmental and subsegmental branches throughout the bilateral lungs. Mild straightening of the intraventricular septum suggesting associated right heart strain. CT CHEST: Unremarkable thyroid. Nonspecific mildly prominent subcarinal and right hilar lymph nodes. No pneumothorax or pleural effusion. There is a large thin-walled cystic focus of the basal left lower lobe, 5.9 x 8.8 cm with prominent adjacent pulmonary arteries. Mild bilateral bronchial wall thickening. Mild emphysema. Linear nodular focus of the left lower lobe on image 112 series 4 may reflect a pulmonary vessel or nodule, indeterminate secondary to respiratory motion artifact. Central airways appear patent. Moderate hiatal hernia. Mild wall thickening noted throughout the esophagus. Nonspecific bilateral perinephric stranding. Hepatic steatosis. Degenerative changes of the shoulders and spine. IMPRESSION: 1. Extensive bilateral pulmonary emboli as above with associated straightening of the intraventricular septum suspicious for right heart strain. 2. No pleural effusion or pulmonary infarct identified. 3. Large thin-walled cyst of the basal left lower lobe, 5.9 x 8.8 cm. 4. Moderate hiatal hernia with mild esophageal wall thickening. 5. Hepatic steatosis. ACT 112: Negative or not required by law. The above report was generated using voice recognition software. It may contain grammatical, syntax or spelling errors. Electronically signed by: Chaim Stevens M.D. 11/17/2019 11:42 AM EKG performed at [address] at 108 / minute, PVC's, poor R-wave progression, no acute changes. ASSESSMENT AND PLAN: BILATERAL PULMONARY EMBOLI Apparently unprovoked VTE. No personal or family history of DVT or PE. Hemodynamically stable. Check venous duplex lower extremities and echo. Best anticoagulation strategy IV heparin --> warfarin given patient's weight. Should have routine cancer screening up to date. Duration of anticoagulation to be determined. Outpatient Hematology consultation recommended regarding further evaluation and duration of therapy. ABNORMAL CT CHEST Large LLL pulmonary cyst measuring 8.8 cm in greatest diameter. Clinical significance uncertain. Requested that images be sent to [facility] for review and comparison with prior images there. Please refer to ADRIAN Rodriguez's documentation for discussion of other issues.
[2019-11-17] MEDS: ALBUT/IPRATROP 3MG/0.5MG NEB 3 ML VIAL NEB SCH ×2 (15:50→19:17)
[2019-11-17 16:39] LABS: Appearance Urine Clear (Clear); Bilirubin Urine Negative (Negative); Blood Urine Negative (Negative); Color Urine Yellow; Glucose Urine UA 3+ (Negative); Ketones Urine 1+ (Negative); Leukocyte Esterase Urine Negative (Negative); Nitrite Urine Negative (Negative); Protein Urine Negative (Negative); Specific Gravity Urine > 1.045 (1.000-1.030); Urobilinogen Urine Negative (Negative)
[2019-11-17] MEDS: INSULIN ASPART 100 UNITS/ML 3 ML PEN SC SCH ×2 (16:53→20:00)
[2019-11-17 18:37] LABS: Partial Thromboplastin Ratio 2.9
[2019-11-17 18:41] LABS: Partial Thromboplastin Time 77.7 Seconds (21.0-31.0)
[2019-11-17] MEDS: FLUTICASONE/SALMETEROL 100/50 (ADVAIR) 14 PUFF/1 INHALER INH SCH (19:56)
[2019-11-17] MEDS: SIMVASTATIN 40 MG TAB PO SCH (19:58)
[2019-11-17] MEDS: FAMOTIDINE 20 MG TAB PO SCH (19:58)
[2019-11-17] MEDS: INSULIN HUMAN NPH SC SCH (20:01)
[2019-11-17] MEDS ORDERED: WARFARIN SOD 10 MG TAB PO ONE (21:00)
--- NOTE | 2019-11-17 21:36 | Ultrasound Report ---
BILATERAL LOWER EXTREMITY VENOUS DOPPLER HISTORY: Acute pain and swelling of the lower extremities with pulmonary emboli BL PE, edema COMPARISON STUDY: CTA of the chest of same day FINDINGS: RIGHT: Occlusive deep venous thrombosis of the mid to distal posterior tibial vein. No deep venous thrombosi s above the level of the knee. LEFT: No deep venous thrombosis noted about the level of the knee. Occlusive superficial venous thrombosis of the lesser saphenous vein without occlusive thrombus also noted within the gastrocnemius vein the level of the mid calf. Moderate subcutaneous edema of the left lower leg. Occlusive deep venous throm bosis of the anterior tibial vein. IMPRESSION: 1. Occlusive deep venous thrombosis of the right posterior tibial vein. 2. Occlusive deep venous thrombosis of the left anterior tibial and gastrocnemius veins. 3. Occlusive superficial venous thrombosis of the left lesser saphenous vein. ACT 112: Negative or not required by law. Electronically signed by: Chaim Stevens M.D. 11/17/2019 9:35 PM
[2019-11-18] MEDS: HEPARIN SODIUM/DEXTROSE 25,000 UNITS/500 ML BAG IV SCH ×2 (00:57→15:25)
[2019-11-18 01:03] LABS: Partial Thromboplastin Ratio 1.8
[2019-11-18 01:08] LABS: Partial Thromboplastin Time 48.5 Seconds (21.0-31.0)
[2019-11-18 06:23] LABS: Hematocrit (blood only) 42.1 % (42-52); Hemoglobin 13.8 g/dL (14.0-18.0); Mean Corpuscular Hemoglobin 32.8 pg (25-34); Mean Corpuscular Hgb Conc 32.8 g/dL (32-36); Mean Platelet Volume 10.7 fL (7.4-10.4); Platelet Count 127 K/uL (130-400); Red Blood Count 4.21 M/uL (4.7-6.1); White Blood Count 7.44 K/uL (4.8-10.8)
[2019-11-18 06:31] LABS: INR 1.1 (0.9-1.1); Prothrombin Time 11.5 Seconds (9.0-12.0)
[2019-11-18 06:58] LABS: BUN Creatinine Ratio 18.6 (10-20); Calcium 8.3 mg/dl (8.5-10.1); Creatinine Clr Calc Pharmacy 85.9 ml/min; Est GFR (African American) 72.3; Est GFR (Non-African American) 62.3; Potassium 4.1 mmol/L (3.5-5.1)
[2019-11-18] MEDS: ALBUT/IPRATROP 3MG/0.5MG NEB 3 ML VIAL NEB SCH ×4 (07:13→19:13)
[2019-11-18] MEDS: INSULIN ASPART 100 UNITS/ML 3 ML PEN SC SCH ×4 (08:07→21:06)
[2019-11-18] MEDS: INSULIN HUMAN NPH SC SCH ×2 (08:08→21:06)
[2019-11-18] MEDS: FLUTICASONE/SALMETEROL 100/50 (ADVAIR) 14 PUFF/1 INHALER INH SCH ×2 (08:10→20:11)
[2019-11-18] MEDS ORDERED: FUROSEMIDE 20 MG TAB PO SCH (09:00)
[2019-11-18] MEDS ORDERED: PANTOprazole 40 MG TAB PO SCH (09:00)
[2019-11-18] MEDS ORDERED: TIOTROPIUM BROMIDE 5 PUFF/90 MCG INH INH SCH (09:00)
[2019-11-18] MEDS ORDERED: OMEGA-3 (PURIFIED FISH OIL) 1 GM CAP PO SCH (09:00)
[2019-11-18] MEDS ORDERED: LOSARTAN POTASSIUM 50 MG TAB PO SCH (09:00)
[2019-11-18] MEDS ORDERED: TAMSULOSIN HCL 0.4 MG CAP PO SCH (09:00)
--- NOTE | 2019-11-18 10:37 | Hospitalist Progress Note ---
Date of Service November 18, 2019 Assessment & Plan (1) Bilateral pulmonary embolism: (2) DVT, bilateral lower limbs: (3) Elevated troponin: (4) Hypoxia: Submassive PE CT PE from yesterday showed extensive bilateral PE with straightening of intraventricular septum suspicious for right heart strain. Troponin was elevated at 0.7 on admission Patient has remained hemodynamically stable. Was hypoxic to 89% on room air yesterday and required nasal cannula. Started on heparin drip with Coumadin yesterday. Lower extremity Doppler showed DVT in the right posterior tibial vein, left anterior tibial and gastrocnemius veins and superficial thrombus in the left lesser saphenous vein. On my review of echo today, report showed moderate to severe RV dilatation, pulmonary hypertension with PASP of 60, moderate to severe global right ventricular hypokinesis, normal left ventricular ejection fraction of 60 to 65%. I think that the patient will benefit from transfer to tertiary center where facilities are available for intervention if patient becomes hemodynamically unstable. I discussed the case with Dr. Smith the electroencephalograph technician. Call was made to the transfer center at [facility]. I discussed patient clinical condition and findings with the medicine doctor water sponger Dr Infante who accepted the patient and wanted me to also discuss with the interventional radiologist. I also discussed the case with interventional radiologist at [facility] who stated that it is fine to transfer patient over there for continued management and monitoring. He stated that patient may be managed medically and if needed be may get intervention. Transfer center agent Nidhi stated that beds are not available right now but they will initiate the transfer once bed becomes available. I discussed the plans with patient with RN at bedside. Patient agrees to transfer. We will continue heparin drip Continue to monitor hemodynamics Ensure routine cancer surveillance up-to-date (had colonoscopy in 2013 with adenomatous polyp, follow-up in 3 years was recommended however has not been completed yet) on discharge. (5) Lung cyst: CT chest shows large left lower lobe walled off cyst Will need outpatient follow-up for this (6) Diabetes mellitus, type 2: Hgb A1c 6.4 09/2019 Hold home 70/30 insulin and oral agents Continue NPH twice daily and NovoLog per protocol while hospitalized Optimize glycemic control Carbohydrate controlled diet (7) COPD (chronic obstructive pulmonary disease): Stable Hypoxia secondary to bilateral pulmonary embolism Continue routine nebulizers (8) Hypertension: BP controlled Holding antihypertensive for now (9) Hyperlipidemia: Continue statin (10) GERD (gastroesophageal reflux disease): Continue PPI and H2 lizy (11) BPH (benign prostatic hyperplasia): Continue tamsulosin (12) DVT prophylaxis: On IV heparin drip Subjective Patient seen and examined. Still reports dry cough, dyspnea on exertion Reports chest pressure is resolved for now. Still has left lower extremity swelling. No pains. Denies any dizziness, loss of consciousness, palpitations. Review of Systems Review of Systems: All systems reviewed and unremarkable except for mentioned above. Physical Exam Physical Exam: General: Well nourished, well hydrated, no acute distress Eyes: PERRL, conjunctivae normal, EOM intact bilaterally ENMT: External ear and nose normal, oropharynx normal Neck: Normal visual inspection, no tracheal deviation, no swelling noted Respiratory: Normal respiratory effort, no respiratory distress, lungs clear to auscultation, no crackles and no wheezes Cardiovascular: Pulse is RRR. S1 S2 + left pedal edema Gastrointestinal (Abdomen): Abdomen is not distended, soft, non-tender to palpation, no guarding, normal bowel sounds Musculoskeletal: No cyanosis or clubbing, all extremities motor strength 5/5, +left leg edema, no tenderness Neurologic: Alert and oriented x 3, No focal weakness, sensation grossly intact Psychiatric: Euthymic affect, no depressed affect Results & Data Vital Signs (Past 12 Hours) Vital Signs Temp Pulse Pulse Resp BP Pulse Ox 11/18/19 08:05 85 11/18/19 08:04 36.4 C L 91 H 16 126/77 94 11/18/19 07:14 87 16 93 11/18/19 03:07 36.4 C L 90 18 122/77 90 11/17/19 23:05 36.4 C L 88 20 119/74 90
[2019-11-18] MEDS ORDERED: FAMOTIDINE 20 MG TAB PO STA (11:24)
[2019-11-18] MEDS ORDERED: WARFARIN SOD 5 MG TAB PO SCH (16:00)
--- NOTE | 2019-11-18 16:46 | Pulmonary Consultation ---
Date of Consultation November 18, 2019 Assessment & Plan (1) Bilateral pulmonary embolism: Patient has large bilateral pulmonary emboli with evidence of lower extremity DVT. He also has evidence of right heart strain and elevated troponin and BNP.Given that we do not have interventional radiology here, I would recommend sending him to a tertiary facility that is able to do catheter directed thrombolytics if needed. He is very stable at this present time and continue to watch him on a heparin drip it is not unreasonable. However, if he should decompensated, then our resources are bit limited in what we can do here other than systemic thrombolytics. (2) Elevated troponin: (3) Hypoxia: History of Present Illness Reason for Consultation: Submassive pulmonary embolism Requesting Physician: Dr. Conn Attending Physician: Davina Conn MD History of Present Illness This is a 74-year-old male with past medical history of obesity, Questionable COPD, paraesophageal hernia type 2 diabetes and BPH who presented to the hospital due to shortness of breath since Midweek last week. He also noted swelling in his leg upon admission. Patient is retired and normally able to ambulate around his house without issue. Late last week he noticed that he was having increasing shortness of breath. He denied any chest pain. He does not endorse any significant cough, fevers or chills. No night sweats. He denies any history of blood clots previously. He lives with his son. He had a CTA of his chest done on admission which demonstrated large bilateral pulmonary emboli. He also had an ultrasound sound of the lower extremity that showed extensive DVT on the left. Pulmonary was consulted due to concerns of a submassive pulmonary embolism. He did have RV strain on the echo and elevated troponin and BNP. He has been on a heparin drip. Allergies Allergy/AdvReac Type Severity Reaction Status Date / Time Penicillins Allergy Intermediate Hives Verified 11/17/19 10:34 adhesive tape Allergy Mild WATER Verified 11/17/19 10:34 BLISTERS latex Allergy Mild WATER Verified 11/17/19 10:34 BLISTERS Home Medications Home Medications Medication Instructions Recorded Confirmed Type albuterol sulfate [Ventolin HFA] 2 puff INHALATION QID PRN 03/25/19 11/17/19 History ascorbic acid (vitamin C) [Vitamin 500 mg PO DAILY 03/25/19 11/17/19 History C] empagliflozin [Jardiance] 25 mg PO QAM 03/25/19 11/17/19 History fluticasone propionate [Flonase 1 spray INTRANASAL QAM 03/25/19 11/17/19 History Allergy Relief] furosemide [Lasix] 20 mg PO DAILY 03/25/19 11/17/19 History insulin asp prt-insulin aspart 25 unit SUBCUT DAILY 03/25/19 11/17/19 History [Novolog Mix 70-30 U-100 Insuln] linagliptin [Tradjenta] 5 mg PO QAM 03/25/19 11/17/19 History losartan 100 mg PO QAM 03/25/19 11/17/19 History omega 9-swp-soo-fish oil [Fish Oil] 1 cap PO DAILY 03/25/19 11/17/19 History omeprazole magnesium [Prilosec OTC] 20 mg PO QAM 03/25/19 11/17/19 History polyethylene glycol 3350 [Miralax] 17 g PO DAILY PRN 03/25/19 11/17/19 History ranitidine HCl 150 mg PO HS 03/25/19 11/17/19 History simvastatin 40 mg PO PM 03/25/19 11/17/19 History tamsulosin [Flomax] 0.4 mg PO DAILY 03/25/19 11/17/19 History tiotropium bromide [Spiriva with 1 cap INHALATION QAM 03/25/19 11/17/19 History HandiHaler] zinc 50 mg PO DAILY 03/25/19 11/17/19 History fluticasone furoate-vilanterol 1 inh INHALATION BID 11/17/19 11/17/19 History [Breo Ellipta] insulin asp prt-insulin aspart 30 unit SUBCUT HS 11/17/19 11/17/19 History [Novolog Mix 70-30FlexPen U-100] Patient History Medical History BPH (benign prostatic hyperplasia) COPD (chronic obstructive pulmonary disease) Diabetes mellitus, type 2 GERD (gastroesophageal reflux disease) Hyperlipidemia Hypertension Osteoarthritis Paraesophageal hernia Restless leg syndrome Surgical History History of anesthesia reaction JUMPY ARMS AFTER ANESTHESIA PER PT History of cataract surgery RT History of cholecystectomy History of colonoscopy History of endoscopic sinus surgery History of tooth extraction Family History Mother Family history of diabetes mellitus Sister Family history of diabetes mellitus Social History Preferred Language: Amharic Communication Ability: Effective Pension Fund Manager Required: No Beliefs That Will Affect Care: None marital status: Current Living Situation: Family Current Living Situation Comment: LIVES WITH SON Other Information That Helps Us Care for You: No Feels Safe at Home: Yes Safety Concerns: Feels Safe At This Time Smoking Status: Unknown if ever smoked Hx Alcohol Use: No Hx Substance Use: No Review of Systems Review of Systems: All systems reviewed & are unremarkable except as noted in HPI & below Physical Exam Constitutional: WD/WN, vitals as above Morbidly obese. In no apparent distress. Able to sit up in bed. Eyes: PERRL, conjunctivae normal, anicteric sclerae ENMT: external ear and nose normal, oropharynx normal Neck: normal visual inspection Respiratory: normal respiratory effort, lungs clear to auscultation Cardiovascular: RRR, no murmur, no edema Gastrointestinal (Abdomen): normal bowel sounds, soft, nontender, no hepatosplenomegaly Musculoskeletal: no cyanosis or clubbing, extremities motor strength 5/5 Skin: no rashes, warm and dry Neurologic: PERRL, EOMI, accommodation nl, no face palsy, no dysarthria Psychiatric: A+Ox3, euthymic affect Lymphatic: Significant swelling in the left lower extremity. Results & Data Vital Signs (Past 12 Hours) Vital Signs Temp Pulse Pulse Resp BP Pulse Ox 11/18/19 15:31 97.5 F L 93 H 16 125/74 90 11/18/19 15:04 97 H 21 91 11/18/19 12:28 97.5 F L 91 H 20 115/71 91 11/18/19 11:05 90 16 93 11/18/19 08:05 85 11/18/19 08:04 97.5 F L 91 H 16 126/77 94 11/18/19 07:14 87 16 93 PG Care Time/CCT Total # of Minutes Spent Total Time Spent with Patient: Total time spent is greater than 50% in coordination of care (as documented) at patient's floor/unit and/or counseling patient:
[2019-11-18] MEDS: FAMOTIDINE 20 MG TAB PO SCH (20:12)
[2019-11-18] MEDS: SIMVASTATIN 40 MG TAB PO SCH (20:12)
[2019-11-19] MEDS: HEPARIN SODIUM/DEXTROSE 25,000 UNITS/500 ML BAG IV SCH (03:41)
--- NOTE | 2019-11-19 07:24 | Discharge Summary ---
Date of Service November 19, 2019 Admission HPI Per Admitting Provider 74-year-old male who presents the ED for evaluation of shortness of breath. Patient reports his symptoms began 2 days ago. He reports shortness of breath with minimal exertion which has been progressively getting worse. No shortness of breath at rest. He reports a persistent epigastric/lower chest pressure for the past several months was a secondary to hernia and unchanged. Patient reports chronic lower extremity edema, left greater than right which is normally managed with compression stockings. No cough or sputum production. Denies lightheadedness, dizziness, diaphoresis. No abdominal pain, nausea, vomiting, diarrhea. Denies any other recent illnesses, fevers, chills. No urinary symptoms. Patient denies any recent prolonged travel. No family history of blood clots. Patient does note that he has been rather sedentary in the cooler months. In the ED, CTA chest is showing extensive bilateral pulmonary embolism with right heart strain. Patient was mildly hypoxic on room air at 89% which i mproved with oxygen 2 L via nasal cannula. Patient was started on a heparin drip. He was also given a nebulizer treatment. Admission Exam Per Admitting Provider Constitutional: WD/WN, vitals as above no acute distress Eyes: PERRL, conjunctivae normal, anicteric sclerae ENMT: external ear and nose normal, oropharynx normal Respiratory: normal respiratory effort; no respiratory distress Auscultation: + diminished lung sounds and + wheezes (Faint, bilateral bases) Cardiovascular: Rate/Rhythm: regular rate and regular rhythm Vessels: normal peripheral pulses Extremities: + edema (+1 edema RLE, +2 edema LLE) Gastrointestinal (Abdomen): normal bowel sounds, soft, nontender, no hepatosplenomegaly Musculoskeletal: no cyanosis or clubbing, extremities motor strength 5/5 Skin: no rashes, warm and dry Neurologic: PERRL, EOMI, accommodation nl, no face palsy, no dysarthria Psychiatric: A+Ox3, euthymic affect Principal Diagnosis Submassive bilateral pulmonary embolism Bilateral lower extremity DVT Discharge Data Allergies Allergy/AdvReac Type Severity Reaction Status Date / Time Penicillins Allergy Intermediate Hives Verified 11/17/19 10:34 adhesive tape Allergy Mild WATER Verified 11/17/19 10:34 BLISTERS latex Allergy Mild WATER Verified 11/17/19 10:34 BLISTERS Consultations 11/17/19 11:31 ED Decision to Admit Stat 11/18/19 16:53 Consult Pulmonology Routine Ordered Studies 11/17/19 10:40 CT angio chest PE protocol Stat 1. Extensive bilateral pulmonary emboli as above with associated straightening of the intraventricular septum suspicious for right heart strain. 2. No pleural effusion or pulmonary infarct identified. 3. Large thin-walled cyst of the basal left lower lobe, 5.9 x 8.8 cm. 4. Moderate hiatal hernia with mild esophageal wall thickening. 5. Hepatic steatosis. 11/17/19 14:24 US venous doppler LE BI Routine 1. Occlusive deep venous thrombosis of the right posterior tibial vein. 2. Occlusive deep venous thrombosis of the left anterior tibial and gastrocnemius veins. 3. Occlusive superficial venous thrombosis of the left lesser saphenous vein. Hospital Course (1) Bilateral pulmonary embolism: (2) DVT, bilateral lower limbs: (3) Elevated troponin: (4) Hypoxia: Submassive PE CT PE from yesterday showed extensive bilateral PE with straightening of intraventricular septum suspicious for right heart strain. Troponin was elevated at 0.7 on admission Patient has remained hemodynamically stable. Was hypoxic to 89% on room air yesterday and required nasal cannula. Started on heparin drip with Coumadin yesterday. Lower extremity Doppler showed DVT in the right posterior tibial vein, left anterior tibial and gastrocnemius veins and superficial thrombus in the left lesser saphenous vein. Echo showed moderate to severe RV dilatation, pulmonary hypertension with PASP of 60, moderate to severe global right ventricular hypokinesis, normal left ventricular ejection fraction of 60 to 65%. Case was discussed with Dr. Smith the machinist mechanic. Due to significant right heart strain, plans were made for transfer to [facility] for continued management and possible intervention if needed Call was made to the transfer center at [facility]. I discussed patient clinical condition and findings with the medicine doctor retail operations manager Dr Infante who accepted the patient and wanted me to also discuss with the interventional radiologist. I also discussed the case with interventional radiologist at [place] who stated that it is fine to transfer patient over there for continued management and monitoring. He stated that patient may be managed medically and if needed be may get intervention. Transfer center agent Nidhi stated that beds are not available right now but they will initiate the transfer once bed becomes available. I discussed the plans with patient with RN at bedside. Patient agrees to transfer. Heparin was continued until transfer Ensure routine cancer surveillance up-to-date (had colonoscopy in 2014 with adenomatous polyp, follow-up in 3 years was recommended however has not been completed yet) on discharge. (5) Lung cyst: CT chest shows large left lower lobe walled off cyst Will need outpatient follow-up for this (6) Diabetes mellitus, type 2: Hgb A1c 6.4 09/2019 Hold home 70/30 insulin and oral agents Continue NPH twice daily and NovoLog per protocol while hospitalized Optimize glycemic control Carbohydrate controlled diet (7) COPD (chronic obstructive pulmonary disease): Stable Hypoxia secondary to bilateral pulmonary embolism Continue routine nebulizers (8) Hypertension: BP controlled Holding antihypertensive for now (9) Hyperlipidemia: Continue statin (10) GERD (gastroesophageal reflux disease): Continue PPI and H2 lizy (11) BPH (benign prostatic hyperplasia): Continue tamsulosin Total Time Total Time Spent Total Time Spent (In Minutes): 20 Total Time Includes: Examination of the Patient, Discharge Planning, Medication Reconciliation and Communication With Other Providers Discharge Plan Discharge Items Patient Disposition: Transfer Acute Care Hospital Reason For Visit: BL PE Discharge Diagnosis: B/L PULMONARY EMBOLISM Activity: As commented below Activity Comment: bed rest for now Non-emergency contact: Primary Care Provider Call non-emergency contact if: you have any medication questions Follow-up/Referrals: Oswaldo Fatima DO [Primary Care Provider] - Diet: Carb Consistent or DM2 Diet Comment: npo for now Addtl Attending Provider Instructions: NPO for now. IV HEPARIN WEIGHT BASED PROTOCOL DURING TRANSFER Pending Studies at Discharge: No Stand-Alone Forms: My [facility] Skilled Items Patient informed of condition?: Yes DNR: No Discharge Level of Care: Other Communicable Disease: No Discharge Prognosis: Other Lines: Peripheral IV Urinary Catheter: No Medications and DC Order Prescriptions: New ipratropium-albuterol 0.5 mg-3 mg(2.5 mg base)/3 mL Solution For Nebulization 3 ml NEB QIDR Qty: 1 RF: 0 tamsulosin 0.4 mg Capsule 0.4 mg PO DAILY Qty: 1 RF: 0 warfarin [Coumadin] 5 mg Tablet 5 mg PO DAILY@1600 Qty: 1 RF: 0 Spiriva with HandiHaler 18 mcg Capsule, W/Inhalation Device 18 mcg inhalation QAM Qty: 1 RF: 0 polyethylene glycol 3350 [Miralax] 17 gram Powder In Packet 17 g PO DAILY Qty: 1 RF: 0 simvastatin 40 mg Tablet 40 mg PO PM Qty: 1 RF: 0 famotidine 20 mg Tablet 20 mg PO HS Qty: 10 RF: 0 pantoprazole 40 mg Tablet,Delayed Release (Dr/Ec) 40 mg PO QAM Qty: 1 RF: 0 Novolin N NPH U-100 Insulin 100 unit/mL Suspension 14 unit SC BID Qty: 1 RF: 0 furosemide 20 mg Tablet 20 mg PO DAILY Qty: 5 RF: 0 fluticasone propion-salmeterol [Advair Diskus] 100-50 mcg/dose Blister With Device 1 puff inhalation BID Qty: 1 RF: 0 Novolog Flexpen U-100 Insulin 100 unit/mL (3 mL) Insulin Pen 1 unit SC ACHS Qty: 1 RF: 0 Discontinued simvastatin 40 mg Tablet 40 mg PO PM RF: 0 tamsulosin [Flomax] 0.4 mg Capsule 0.4 mg PO DAILY RF: 0 furosemide [Lasix] 20 mg Tablet 20 mg PO DAILY RF: 0 polyethylene glycol 3350 [Miralax] 17 gram/dose Powder 17 g PO DAILY PRN (Reason: Constipation) RF: 0 Prilosec OTC 20 mg Tablet,Delayed Release (Dr/Ec) 20 mg PO QAM RF: 0 Spiriva with HandiHaler 18 mcg Capsule, W/Inhalation Device 1 cap INHALATION QAM RF: 0 omega 3-dnk-ivm-fish oil [Fish Oil] 1,000 mg (120 mg-180 mg) Capsule 1 cap PO DAILY RF: 0 Breo Ellipta 100-25 mcg/dose blister with device 1 inh INHALATION BID RF: 0 No Action ascorbic acid (vitamin C) [Vitamin C] 500 mg Tablet 500 mg PO DAILY RF: 0 ranitidine HCl 150 mg Tablet 150 mg PO HS RF: 0 zinc 50 mg Tablet 50 mg PO DAILY RF: 0 albuterol sulfate [Ventolin HFA] 90 mcg/actuation Hfa Aerosol Inhaler 2 puff INHALATION QID PRN (Reason: SHORT OF BREATH) RF: 0 losartan 100 mg Tablet 100 mg PO QAM RF: 0 fluticasone propionate [Flonase Allergy Relief] 50 mcg/actuation Berry,Suspension 1 spray INTRANASAL QAM RF: 0 Novolog Mix 70-30 U-100 Insuln 100 unit/mL (70-30) Solution 25 unit subcut DAILY RF: 0 Tradjenta 5 mg Tablet 5 mg PO QAM RF: 0 Jardiance 25 mg Tablet 25 mg PO QAM RF: 0 Novolog Mix 70-30FlexPen U-100 100 unit/mL (70-30) insulin pen 30 unit SUBCUT HS RF: 0 Discharge Orders: Discharge Order (Routine); Ordered 11/19/19 Ordered By: Conrad Mancuso/Other Patient Handouts: DVT Complications, Embolism Pulmonary, Anticoagulants, Activated Partial Thromboplastin Clotting Time Admission Data Admit Date/Time: 11/17/19 12:19 Attending Provider: Davina Conn I. Admit Provider: Brad Nino Primary Care Provider: Oswaldo Fatima V. Other Providers: Brad Nino ; Shayne Smith Other Interventions: Discharge Summary Assessment (RN) Last Done: 11/19/19 02:01 DC Date/Time DO NOT enter until pt leaves facility: 11/19/19 04:30
== END 2019-11-19 04:30 | disposition short-term general hospital (02) | DRG 176 ==
LOC: ED 09:18 → SUATTDRO 12:19 → 2S 12:19

== ENCOUNTER 2021-09-29 18:33 | Inpatient (IN) ==
--- NOTE | 2021-09-29 19:16 | XRay Report ---
XR chest 1V portable CLINICAL HISTORY: cough hypoxia COMPARISON STUDY: Chest radiograph and chest CT November 17, 2019. FINDINGS: There is mild lung hyperinflation. No pneumothorax or pleural effusion is noted. Cardiac si ze is normal. Hiatal hernia is noted. Mild left basilar opacities are present. There is no evidence f or pulmonary edema. IMPRESSION: Mild left lower lung opacities. This may reflect an infectious process. Radiographic fol low-up to ensure resolution is recommended. ACT 112: Negative or not required by law. Electronically signed by: Spencer Jensen M.D. 09/29/2021 7:15 PM
[2021-09-29 19:18] LABS: Basophils # (auto) 0.01 K/uL (0-0.2); Basophils % (auto) 0.1 %; Hematocrit (blood only) 42.9 % (42-52); Hemoglobin 14.3 g/dL (14.0-18.0); Immature Granulocytes # (auto) 0.01 K/uL (0.00-0.02); Immature Granulocytes % (auto) 0.1 %; Lymphocytes # (auto) 0.55 K/uL (1.2-3.4); Lymphocytes % (auto) 7.5 %; Mean Corpuscular Hemoglobin 32.4 pg (25-34); Mean Corpuscular Hgb Conc 33.3 g/dL (32-36); Mean Corpuscular Volume 97.3 fL (80-100); Mean Platelet Volume 10.7 fL (7.4-10.4); Monocytes % (auto) 6.8 %; Neutrophils # (auto) 6.25 K/uL (1.4-6.5); Neutrophils % (auto) 85.5 %; Platelet Count 113 K/uL (130-400); RDW Coefficient of Variation 15.2 % (11.5-14.5); RDW Standard Deviation 54.4 fL (36.4-46.3); Red Blood Count 4.41 M/uL (4.7-6.1); White Blood Count 7.32 K/uL (4.8-10.8)
[2021-09-29] MEDS ORDERED: ACETAMINOPHEN 1,000 MG/100 ML VIAL IV STA (19:31)
--- NOTE | 2021-09-29 19:32 | Emergency Department Note ---
History of Present Illness General Chief complaint: Illness Time Seen by Provider: 09/29/21 18:36 Source: patient Mode of arrival: EMS Limitations: no limitations History of Present Illness Provider complaint: leg weakness, sob Onset (ago): day(s) 4 Associated symptoms: + chest pain, + cough, + fever/chills, + loss of appetite, + malaise, + shortness of breath and + weakness; no headaches or no nausea/vomiting Treatments prior to arrival: other This is a 76-year male presents emergency department complaining of weakness, shortness of breath, fevers and chills. Patient states he was diagnosed with coronavirus the beginning of the week. Patient does have a history of diabetes and COPD, and has felt increased shortness of breath and increased cough over the course of the week. He denies any change in the color of his sputum, denies any hemoptysis. 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 Patient states at home this evening his legs felt very weak and he felt as though they were beginning to give out from under him. He states he grabbed a walker and slowly helped the lower himself to the floor. He denies any concern for injury related to this event. Patient states family members at home checked his pulse ox during that time and found it to be low at 85%. He states when EMS first arrived it was low for them as well, and despite efforts to cough and deep breathe did not improve. EMS then placed him on oxygen and gave him a DuoNeb treatment. Patient states he was feeling improved by arrival here. Patient denies vomiting, headaches, abdominal pain. He states he has had intermittent chest tightness with his cough and increased trouble breathing. Pt seen during a time of high acuity and national emergency pandemic while wearing PPE. Home Medications Medication Instructions Recorded Confirmed Type albuterol sulfate 90 mcg/actuation 2 puff INHALATION QID PRN 03/25/19 09/29/21 History aerosol inhaler (Ventolin HFA) ascorbic acid (vitamin C) 500 mg 500 mg PO DAILY 03/25/19 09/29/21 History tablet (Vitamin C) empagliflozin 25 mg tablet 25 mg PO QAM 03/25/19 09/29/21 History (Jardiance) fluticasone propionate 50 1 spray INTRANASAL QA 03/25/19 09/29/21 History mcg/actuation nasal spray,suspension (Flonase Allergy Relief) furosemide 20 mg tablet (Lasix) 20 mg PO DAILY 03/25/19 09/29/21 History insulin aspar prt-insulin aspart 36 unit SUBCUT DAILY 03/25/19 09/29/21 History 100 unit/mL (70-30) subcutaneous soln (Novolog Mix 70-30 U-100 Insuln) linagliptin 5 mg tablet (Tradjenta) 5 mg PO QAM 03/25/19 09/29/21 History omega 6-fxr-ccy-fish oil 1,000 mg 1 cap PO DAILY 03/25/19 09/29/21 History (120 mg-180 mg) capsule (Fish Oil) omeprazole magnesium 20 mg 20 mg PO QAM 03/25/19 09/29/21 History tablet,delayed release (Prilosec OTC) polyethylene glycol 3350 17 17 g PO DAILY PRN 03/25/19 09/29/21 History gram/dose oral powder (Miralax) tamsulosin 0.4 mg capsule (Flomax) 0.4 mg PO DAILY 03/25/19 09/29/21 History tiotropium bromide 18 mcg capsule 1 cap INHALATION QAM 03/25/19 09/29/21 History with inhalation device (Spiriva with HandiHaler) zinc 50 mg tablet 50 mg PO DAILY 03/25/19 09/29/21 History fluticasone furoate 100 1 inh INHALATION BID 11/17/19 09/29/21 History mcg-vilanterol 25 mcg/dose inhalation powder (Breo Ellipta) insulin aspar prot-insulin aspart 30 unit SUBCUT HS 11/17/19 09/29/21 History 100 unit/mL (70-30) subcutaneous pen (Novolog Mix 70-30FlexPen U-100) famotidine 20 mg tablet 20 mg PO HS #10 tab 11/19/19 09/29/21 Rx fluticasone 100 mcg-salmeterol 50 1 puff INHALATION BID #1 ea 11/19/19 09/29/21 Rx mcg/dose blistr powdr for inhalation (Advair Diskus) ipratropium 0.5 mg-albuterol 3 mg 3 ml NEB QIDR #1 ml 11/19/19 09/29/21 Rx (2.5 mg base)/3 mL nebulization soln pantoprazole 40 mg tablet,delayed 40 mg PO QAM #1 tab 11/19/19 09/29/21 Rx release simvastatin 40 mg tablet 40 mg PO PM #1 tab 11/19/19 09/29/21 Rx losartan 50 mg tablet 50 mg PO DAILY 09/29/21 09/29/21 History warfarin 5 mg tablet 5 mg PO DAILY@1600 09/29/21 09/29/21 History Allergies Allergy/AdvReac Type Severity Reaction Status Date / Time Penicillins Allergy Intermediate Hives Verified 09/29/21 20:34 adhesive tape Allergy Mild WATER Verified 09/29/21 20:34 BLISTERS latex Allergy Mild WATER Verified 09/29/21 20:34 BLISTERS Past Med/Surg History Medical History (Updated 10/01/21 @ 03:26 by Eileen Munson DO) BPH (benign prostatic hyperplasia) COPD (chronic obstructive pulmonary disease) Diabetes mellitus, type 2 GERD (gastroesophageal reflux disease) Hyperlipidemia Hypertension Osteoarthritis Paraesophageal hernia Restless leg syndrome Surgical History History of anesthesia reaction JUMPY ARMS AFTER ANESTHESIA PER PT History of cataract surgery RT History of cholecystectomy History of colonoscopy History of endoscopic sinus surgery History of tooth extraction Family History Mother Family history of diabetes mellitus Sister Family history of diabetes mellitus Social History Smoking Status: Former smoker Tobacco Type: Cigarettes Second Hand Exposure: No; Hx Alcohol Use: No Hx Substance Use: No Preferred Language: Vietnamese Communication Ability: Effective Audio Visual Facilities Engineer Required: No Beliefs That Will Affect Care: None marital status: Current Living Situation: Family Current Living Situation Comment: Home with son Other Information That Helps Us Care for You: No Feels Safe at Home: Yes Safety Concerns: Feels Safe At This Time Assistive Devices: Cane Review of Systems A total of 10 systems reviewed and were otherwise negative All systems reviewed & are unremarkable except as noted in HPI & below Physical Exam Vital Signs Vital Signs - 24 hr 09/29/21 18:56 09/29/21 19:02 09/29/21 19:05 Temperature 38.1 C H 38.1 C H Temperature Source Oral Oral Pulse Rate 94 H 90 Pulse Rate [Apical] 89 Pulse Rate from SpO2 Sensor 91 H Respiratory Rate 20 19 24 Respiratory Effort / Characteristics Blood Pressure 116/58 L Blood Pressure [Right Arm] 100/67 Blood Pressure Mean 77 Blood Pressure Mean [Right Arm] 78 Blood Pressure Position [Right Arm] Sitting Pulse Oximetry 94 92 94 Oxygen Delivery Method Room Air Room Air Fraction of Inspired Oxygen Sepsis Recent Fever Within 48 Hours Yes Sepsis New/Unexplained Change in Mental Status No Sepsis Action Taken by Nursing No Action Required 09/29/21 19:10 09/29/21 19:20 09/29/21 19:30 Temperature Temperature Source Pulse Rate 90 87 90 Pulse Rate [Apical] Pulse Rate from SpO2 Sensor 90 81 Respiratory Rate 23 21 23 Respiratory Effort / Characteristics Blood Pressure Blood Pressure [Right Arm] Blood Pressure Mean Blood Pressure Mean [Right Arm] Blood Pressure Position [Right Arm] Pulse Oximetry 93 92 Oxygen Delivery Method Fraction of Inspired Oxygen Sepsis Recent Fever Within 48 Hours Sepsis New/Unexplained Change in Mental Status Sepsis Action Taken by Nursing 09/29/21 19:40 09/29/21 19:50 09/29/21 20:00 Temperature Temperature Source Pulse Rate 88 88 86 Pulse Rate [Apical] Pulse Rate from SpO2 Sensor 88 83 Respiratory Rate 24 20 19 Respiratory Effort / Characteristics Blood Pressure Blood Pressure [Right Arm] Blood Pressure Mean Blood Pressure Mean [Right Arm] Blood Pressure Position [Right Arm] Pulse Oximetry 96 93 Oxygen Delivery Method Fraction of Inspired Oxygen Sepsis Recent Fever Within 48 Hours Sepsis New/Unexplained Change in Mental Status Sepsis Action Taken by Nursing 09/29/21 20:10 09/29/21 20:20 09/29/21 20:28 Temperature 37.8 C H Temperature Source Oral Pulse Rate 85 84 Pulse Rate [Apical] 83 Pulse Rate from SpO2 Sensor 85 84 Respiratory Rate 22 20 20 Respiratory Effort / Characteristics Blood Pressure Blood Pressure [Right Arm] 119/64 Blood Pressure Mean Blood Pressure Mean [Right Arm] 82 Blood Pressure Position [Right Arm] Sitting Pulse Oximetry 92 93 92 Oxygen Delivery Method Room Air Fraction of Inspired Oxygen Sepsis Recent Fever Within 48 Hours Sepsis New/Unexplained Change in Mental Status Sepsis Action Taken by Nursing 09/29/21 20:30 09/29/21 20:40 09/29/21 20:50 Temperature Temperature Source Pulse Rate 83 84 89 Pulse Rate [Apical] Pulse Rate from SpO2 Sensor 84 83 88 Respiratory Rate 16 21 20 Respiratory Effort / Characteristics Blood Pressure Blood Pressure [Right Arm] Blood Pressure Mean Blood Pressure Mean [Right Arm] Blood Pressure Position [Right Arm] Pulse Oximetry 92 92 91 Oxygen Delivery Method Fraction of Inspired Oxygen Sepsis Recent Fever Within 48 Hours Sepsis New/Unexplained Change in Mental Status Sepsis Action Taken by Nursing 09/29/21 21:00 09/29/21 21:20 09/29/21 21:23 Temperature Temperature Source Pulse Rate 88 Pulse Rate [Apical] 88 80 Pulse Rate from SpO2 Sensor 81 Respiratory Rate 21 22 17 Respiratory Effort / Characteristics Non-Labored Spontaneous Blood Pressure Blood Pressure [Right Arm] 123/67 Blood Pressure Mean Blood Pressure Mean [Right Arm] 85 Blood Pressure Position [Right Arm] Pulse Oximetry 92 92 93 Oxygen Delivery Method Room Air Room Air Room Air Fraction of Inspired Oxygen 21 Sepsis Recent Fever Within 48 Hours Sepsis New/Unexplained Change in Mental Status Sepsis Action Taken by Nursing GENERAL: alert, well appearing, well nourished, no distress, non-toxic EYE EXAM: normal conjunctiva, PERRL and EOM's grossly intact OROPHARYNX: no exudate, no erythema, lips, buccal mucosa, and tongue normal and mucous membranes are moist NECK: supple, no nuchal rigidity, no adenopathy, non-tender LUNGS: Clear but decreased to auscultation. Normal chest wall mechanics, no w/r/r HEART: no murmurs, S1 normal and S2 normal ABDOMEN: abdomen soft, non-tender, normo-active bowel sounds, no masses, no rebound or guarding. BACK: Back is symmetrical on inspection and there is no deformity, no midline tenderness, no CVA tenderness. SKIN: no rashes and no bruising UPPER EXTREMITIES: upper extremities are grossly normal. FROM, nml pulses b/l. LOWER EXTREMITIES: 2+ b/l pitting edema. FROM, nml pulses b/l. Compression stockings noted. Patient is able to lift legs, however states they feel "heavy". NEURO EXAM: Normal sensorium, cranial nerves II-XII grossly intact, normal speech, no gross weakness of arms, no gross weakness of legs. Gross sensation intact. Course Course 2234: Patient did tolerate p.o., was able to ambulate. Denies leg pain, or back pain. States he was incontinent on the floor at home because he was too weak to get up, he did feel the urge to go however could not get there. Denies any prior history of back pain or back problems. 2302: Pt states still feels weak and is uncomfortable going home. 2322: Discussed with Dr. Sofia. Administered Medications Albuterol (Albut/Ipratrop 3mg/0.5mg Neb 3 Ml Vial) 3 ml NEB QIDR MITCHEL Stop: 10/30/21 06:59 Last Admin: 09/30/21 19:39 Dose: 3 ml Documented by: [id number] Admin: 09/30/21 15:08 Dose: 3 ml Documented by: [id number] Admin: 09/30/21 10:56 Dose: 3 ml Documented by: [id number] Admin: 09/30/21 07:56 Dose: 3 ml Documented by: [id number] Ascorbic Acid (Ascorbic Acid 500 Mg Tab) 500 mg PO DAILY MITCHEL Stop: 10/30/21 08:59 Last Admin: 09/30/21 09:55 Dose: 500 mg Documented by: [id number] Diltiazem HCl (Diltiazem Hcl 180 Mg Capcr) 180 mg PO QAM MITCHEL Stop: 10/30/21 08:59 Last Admin: 09/30/21 09:57 Dose: 180 mg Documented by: [id number] Famotidine (Famotidine 20 Mg Tab) 20 mg PO HS MITCHEL Stop: 10/30/21 20:59 Last Admin: 09/30/21 20:24 Dose: 20 mg Documented by: [id number] Fluticasone Propionate (Fluticasone Propionate Na Spr 16 Gm Btl) 1 sprays NA QAM MITCHEL Stop: 10/30/21 08:59 Last Admin: 09/30/21 09:55 Dose: 1 sprays Documented by: [id number] Fluticasone/Vilanterol (Fluticasone/Vilanterol 100/25mcg 14 Puffs/Inhaler) 1 puffs INH HS MITCHEL Stop: 10/30/21 20:59 Last Admin: 09/30/21 21:04 Dose: Not Given Documented by: [id number] Furosemide (Furosemide 20 Mg Tab) 20 mg PO DAILY MITCHEL Stop: 10/30/21 08:59 Last Admin: 09/30/21 09:56 Dose: 20 mg Documented by: [id number] Insulin Aspart (Insulin 70% Aspart Protamine/30% Aspart) 36 units SQ QDB MITCHEL Stop: 10/30/21 07:29 Last Admin: 09/30/21 10:31 Dose: 36 units Documented by: [id number] Cosigned by: [id number] Insulin Aspart (Insulin 70% Aspart Protamine/30% Aspart) 30 units SQ QDD MITCHEL Stop: 10/30/21 16:29 Last Admin: 09/30/21 17:52 Dose: 30 units Documented by: [id number] Cosigned by: [id number] Insulin Aspart (Insulin Aspart 100 Units/Ml 3 Ml Pen) 0 units SC ACHS [facility] Stop: 10/30/21 07:29 Last Admin: 09/30/21 20:10 Dose: Not Given Documented by: [id number] Cosigned by: [id number] Admin: 09/30/21 17:51 Dose: 3 units Documented by: [id number] Cosigned by: [id number] Admin: 09/30/21 13:07 Dose: Not Given Documented by: [id number] Admin: 09/30/21 09:08 Dose: Not Given Documented by: [id number] Losartan Potassium (Losartan Potassium 50 Mg Tab) 50 mg PO DAILY MITCHEL Stop: 10/30/21 08:59 Last Admin: 09/30/21 09:55 Dose: 50 mg Documented by: [id number] Pantoprazole Sodium (Pantoprazole 40 Mg Tab) 40 mg PO QAM MITCHEL Stop: 10/30/21 08:59 Last Admin: 09/30/21 09:56 Dose: 40 mg Documented by: [id number] Simvastatin (Simvastatin 40 Mg Tab) 40 mg PO PM MITCHEL Stop: 10/30/21 20:59 Last Admin: 09/30/21 20:24 Dose: 40 mg Documented by: [id number] Tamsulosin HCl (Tamsulosin Hcl 0.4 Mg Cap) 0.4 mg PO DAILY MITCHEL Stop: 10/30/21 08:59 Last Admin: 09/30/21 09:56 Dose: 0.4 mg Documented by: [id number] Umeclidinium [place] (Umeclidinium [place] 62.5mcg/Blister 7 Puffs/Inhaler) 1 puffs INH HS MITCHEL Stop: 10/30/21 20:59 Last Admin: 09/30/21 20:24 Dose: 1 puffs Documented by: [id number] Warfarin Sodium (Warfarin Sod 5 Mg Tab) 5 mg PO DAILY@1600 [facility] Stop: 10/30/21 15:59 Last Admin: 09/30/21 17:24 Dose: 5 mg Documented by: [id number] Zinc Sulfate (Zinc Sulfate 220 Mg Capsule) 220 mg PO DAILY MITCHEL Stop: 10/30/21 08:59 Last Admin: 09/30/21 09:56 Dose: 220 mg Documented by: [id number] Discontinued Medications Albuterol (Albut/Ipratrop 3mg/0.5mg Neb 3 Ml Vial) 3 ml NEB NOW STA Stop: 09/29/21 21:09 Last Admin: 09/29/21 21:21 Dose: 3 ml Documented by: [id number] Fluticasone/Vilanterol (Fluticasone/Vilanterol 100/25mcg 14 Puffs/Inhaler) 1 puffs INH QAM MITCHEL Stop: 10/30/21 08:59 Last Admin: 09/30/21 11:22 Dose: Not Given Documented by: [id number] Acetaminophen (Ofirmev) 1,000 mg in 100 mls @ 400 mls/hr IV NOW STA Stop: 09/29/21 19:45 Last Infusion: 09/29/21 20:03 Dose: 0 mls/hr Documented by: [id number] Admin: 09/29/21 19:41 Dose: 400 mls/hr Documented by: [id number] Umeclidinium [place] (Umeclidinium [place] 62.5mcg/Blister 7 Puffs/Inhaler) 1 puffs INH QAM MITCHEL Stop: 10/30/21 08:59 Last Admin: 09/30/21 11:22 Dose: Not Given Documented by: [id number] Medical Decision Making Differential Diagnosis Differential Diagnosis includes but is not limited to dehydration, stroke, anemia, hypoglycemia, hyponatremia, hypernatremia, urinary tract infection, pneumonia, bronchitis, sepsis, gastroenteritis, additional abdominal pathology, metabolic abnormalities and infections. Medical Records Attestation: I reviewed the patient's medical records. Home Medications Current Medication List: was personally reviewed by me Laboratory Data Attestation: I reviewed the patient's lab results. Result diagrams: 09/30/21 05:54 09/30/21 07:19 Lab Results 09/29/21 09/29/21 09/29/21 Range/Units 18:51 19:05 19:05 WBC 7.32 (4.8-10.8) K/uL RBC 4.41 L (4.7-6.1) M/uL Hgb 14.3 (14.0-18.0) g/dL Hct 42.9 (42-52) % MCV 97.3 (80-100) fL MCH 32.4 (25-34) pg MCHC 33.3 (32-36) g/dL RDW Std Deviation 54.4 H (36.4-46.3) fL RDW Coeff of Jake 15.2 H (11.5-14.5) % Plt Count 113 L (130-400) K/uL MPV 10.7 H (7.4-10.4) fL Immature Gran % (Auto) 0.1 % Neut % (Auto) 85.5 % Lymph % (Auto) 7.5 % [place] % (Auto) 6.8 % Eos % (Auto) 0.0 % Baso % (Auto) 0.1 % Neut # (Auto) 6.25 (1.4-6.5) K/uL Lymph # (Auto) 0.55 L (1.2-3.4) K/uL [place] # (Auto) 0.50 (0.11-0.59) K/uL Eos # (Auto) 0.00 (0-0.5) K/uL Baso # (Auto) 0.01 (0-0.2) K/uL Immature Gran # (Auto) 0.01 (0.00-0.02) K/uL PT (9.0-12.0) Seconds INR (0.9-1.1) Sodium 139 (136-145) mmol/L Potassium 4.1 (3.5-5.1) mmol/L Chloride 108 H (98-107) mmol/L Carbon Dioxide 26 (21-32) mmol/L Anion Gap 6.0 (3-11) BUN 22 H (7-18) mg/dl Creatinine 1.09 (0.6-1.4) mg/dl Est Cr Clr Drug Dosing 89.7 ml/min Est GFR ( Amer) 76.0 ml/min Est GFR (Non-Af Amer) 65.6 ml/min BUN/Creatinine Ratio 20.3 H (10-20) Glucose 100 H (70-99) mg/dl POC Glucose 96 (70-99) mg/dl Calcium 8.5 (8.5-10.1) mg/dl Magnesium 2.2 (1.8-2.4) mg/dl Total Bilirubin 0.5 (0.2-1) mg/dl AST 22 (15-37) U/L ALT 30 (12-78) U/L Alkaline Phosphatase 50 (45-117) U/L Troponin I 0.035 (0-0.045) ng/ml NT-Pro-B Natriuret Pep 382 (0-1800) pg/ml Total Protein 6.7 (6.4-8.2) gm/dl Albumin 2.9 L (3.4-5.0) gm/dl Globulin 3.8 (2.5-4.0) gm/dl Albumin/Globulin Ratio 0.8 L (0.9-2) Lipase 61 L (73-393) U/L TSH 0.594 (0.300-4.500) uIu/ml COVID-19 Eval Order SARS-CoV-2 (PCR) (Negative) 09/29/21 09/30/21 09/30/21 Range/Units 19:05 00:07 00:07 WBC (4.8-10.8) K/uL RBC (4.7-6.1) M/uL Hgb (14.0-18.0) g/dL Hct (42-52) % MCV (80-100) fL MCH (25-34) pg MCHC (32-36) g/dL RDW Std Deviation (36.4-46.3) fL RDW Coeff of Jake (11.5-14.5) % Plt Count (130-400) K/uL MPV (7.4-10.4) fL Immature Gran % (Auto) % Neut % (Auto) % Lymph % (Auto) % [place] % (Auto) % Eos % (Auto) % Baso % (Auto) % Neut # (Auto) (1.4-6.5) K/uL Lymph # (Auto) (1.2-3.4) K/uL [place] # (Auto) (0.11-0.59) K/uL Eos # (Auto) (0-0.5) K/uL Baso # (Auto) (0-0.2) K/uL Immature Gran # (Auto) (0.00-0.02) K/uL PT 26.4 H (9.0-12.0) Seconds INR 2.8 H (0.9-1.1) Sodium (136-145) mmol/L Potassium (3.5-5.1) mmol/L Chloride (98-107) mmol/L Carbon Dioxide (21-32) mmol/L Anion Gap (3-11) BUN (7-18) mg/dl Creatinine (0.6-1.4) mg/dl Est Cr Clr Drug Dosing ml/min Est GFR ( Amer) ml/min Est GFR (Non-Af Amer) ml/min BUN/Creatinine Ratio (10-20) Glucose (70-99) mg/dl POC Glucose (70-99) mg/dl Calcium (8.5-10.1) mg/dl Magnesium (1.8-2.4) mg/dl Total Bilirubin (0.2-1) mg/dl AST (15-37) U/L ALT (12-78) U/L Alkaline Phosphatase (45-117) U/L Troponin I (0-0.045) ng/ml NT-Pro-B Natriuret Pep (0-1800) pg/ml Total Protein (6.4-8.2) gm/dl Albumin (3.4-5.0) gm/dl Globulin (2.5-4.0) gm/dl Albumin/Globulin Ratio (0.9-2) Lipase (73-393) U/L TSH (0.300-4.500) uIu/ml COVID-19 Eval Order Covid19 at [facility] SARS-CoV-2 (PCR) POSITIVE A* (Negative) Imaging Data Radiologist's Impression: Chest X-Ray 09/29/21 18:48 XR chest 1V portable CLINICAL HISTORY: cough hypoxia COMPARISON STUDY: Chest radiograph and chest CT November 17, 2019. FINDINGS: There is mild lung hyperinflation. No pneumothorax or pleural effusion is noted. Cardiac size is normal. Hiatal hernia is noted. Mild left basilar opacities are present. There is no evidence for pulmonary edema. IMPRESSION: Mild left lower lung opacities. This may reflect an infectious process. Radiographic follow-up to ensure resolution is recommended. ACT 112: Negative or not required by law. Electronically signed by: Spencer Jensen M.D. 09/29/2021 7:15 PM ECG Data Attestation: I personally reviewed and interpreted this ECG as follows: Indication: + weakness Rate (beats per minute): 89 Rhythm: + normal sinus ECG Intervals/blocks: + Normal QRS and + Normal QT ECG Riley: + Normal ECG ST segments: + Normal ST segments MDM Narrative This is an ill-appearing 76-year-old male with known coronavirus who presents after an episode of increased weakness and near fall. Labs drawn and sent and were reassuring. Patient was able to be weaned off of oxygen here, was given additional DuoNeb treatment and reported his breathing was improved. Patient was able to ambulate and stated he did feel improved compared to prior, he still felt weak and was concerned about going home and having a subsequent event. Patient has already received monoclonal antibody treatment for his coronavirus. Due to persistent symptoms as well as patient being high risk given his age and other comorbidities, case discussed with hospitalist for additional evaluation and management. Patient's INR was noted to be therapeutic. He denied any in creased leg swelling or calf tenderness. I do not suspect occult DVT related to his leg swelling. Patient continued to deny back pain, sensation was intact, denied saddle anesthesia or incontinence. I do not suspect occult spine etiology. I suspect patient with generalized weakness secondary to his current Covid infection on top of his longstanding medical problems. No evidence of acute cardiac involvement such as pericarditis/myocarditis, acute pulmonary edema, or ACS. An order was placed for continuous cardiac monitoring. The monitor shows a rate of _82_ with _normal sinus__ rhythm. Impression & Plan Weakness, COPD (chronic obstructive pulmonary disease), COVID-19, Dyspnea Discharge Plan Visit Data Chief Complaint: Illness ED Provider: Eileen Munson Discharge Problem: Weakness, COPD (chronic obstructive pulmonary disease), COVID-19, Dyspnea Patient Disposition: Admitted As Inpatient Discharge Instructions Interventions: ED Discharge Assessment Last Done: 09/30/21 02:19 Discharge Problem: COPD (chronic obstructive pulmonary disease) Qualifiers: COPD type: unspecified COPD Qualified Code(s): J44.9 - Chronic obstructive pulmonary disease, unspecified Dyspnea Qualifiers: Dyspnea type: shortness of breath Qualified Code(s): R06.02 - Shortness of breath
[2021-09-29 19:36] LABS: Albumin Level 2.9 gm/dl (3.4-5.0); BUN Creatinine Ratio 20.3 (10-20); Calcium 8.5 mg/dl (8.5-10.1); Creatinine Clr Calc Pharmacy 89.7 ml/min; Est GFR (Non-African American) 65.6 ml/min; Magnesium 2.2 mg/dl (1.8-2.4); Potassium 4.1 mmol/L (3.5-5.1)
[2021-09-29 19:47] LABS: Albumin Globulin Ratio 0.8 (0.9-2); Bilirubin,Total 0.5 mg/dl (0.2-1); Globulin 3.8 gm/dl (2.5-4.0); Thyroid Stimulating Hormone 0.594 uIu/ml (0.300-4.500); Total Protein 6.7 gm/dl (6.4-8.2); Troponin I 0.035 ng/ml (0-0.045)
[2021-09-29 20:30] LABS: INR 2.8 (0.9-1.1); Prothrombin Time 26.4 Seconds (9.0-12.0)
[2021-09-29] MEDS ORDERED: ALBUT/IPRATROP 3MG/0.5MG NEB 3 ML VIAL NEB STA (21:08)
--- NOTE | 2021-09-30 01:17 | History and Physical Report ---
DATE OF ADMISSION: 09/30/2021. CHIEF COMPLAINT: COVID-19. HISTORY OF PRESENT ILLNESS: This is a 76-year-old male with past medical history significant for type 2 diabetes, diabetic polyneuropathy, hyperlipidemia, COPD, allergic rhinitis, deviated nasal septum, history of bilateral pulmonary embolism, deep venous thrombosis on Coumadin, hypertension, history of heart failure, history of accelerated junctional rhythm, obesity, GERD, paraesophageal hernia, primary osteoarthritis of right knee, presents from home because of not feeling well. The patient was having COVID symptoms since last Monday and Monday, he was diagnosed with COVID. He came to the ER in the morning with COVID symptoms and was saturating fine. He was given a monoclonal antibody and was sent home. The patient after going home, he was feeling very weak. His legs were giving away and has some back pain. Has some ambulatory dysfunction, not feeling well, so he came here. When EMS arrived to his house, he was saturating 85% and also in the ER at one point of time he required oxygen, but currently saturating fine on room air after getting neb treatments. Currently, resting comfortably and hemodynamically stable. Denies any headache. No blurred visions, no earache, no runny nose, has some sore throat and has some cough. Has mild temperature spike in the ER. Denies any chest pain, denies any shortness of breath. Currently, denies any nausea, no abdominal pain, no diarrhea, no constipation. Normal bowel and bladder incontinence, says he has some imbalance while ambulating. ALLERGIES: PENICILLINS, ADHESIVE TAPE, LATEX. PAST MEDICAL HISTORY: As mentioned above. PAST SURGICAL HISTORY: Colonoscopy, cystoscopy, laparoscopic cholecystectomy, right lens extraction, repair of detached retina, right side. MEDICATIONS: The patient is on albuterol 2 puffs inhalation q.i.d. p.r.n., ascorbic acid 500 mg p.o. daily, Jardiance 25 mg p.o. a.m., famotidine 20 mg p.o. at bedtime, Breo Ellipta one inhalation b.i.d., Advair Diskus one inhalation b.i.d., Flonase 1 spray intranasal a.m., Lasix 20 mg p.o. daily, NovoLog mix 70/30, 36 units daily in the a.m. and 30 units in p.m., DuoNebs q.i.d., Tradjenta 5 mg p.o. a.m., losartan 50 mg p.o. a.m., fish oil 1 capsule daily, omeprazole 20 mg p.o. a.m., Protonix 40 mg p.o. daily, MiraLax 17 g p.o. daily p.r.n., simvastatin 40 mg p.o. daily, Flomax 0.4 mg p.o. daily, Spiriva inhaler 1 capsule inhalation daily, warfarin 5 mg p.o. daily, zinc 50 mg p.o. daily. FAMILY HISTORY: Significant for mother had liver cancer, diabetes. Father had heart attack, brother had diabetes, sister has diabetes. SOCIAL HISTORY: Lives with his son. Former smoker, quit in 2005, smoked 2.5 packs a day for 30 years. No alcohol use. No drug use. REVIEW OF SYSTEMS: As per HPI. Rest of the review of systems is negative. PHYSICAL EXAMINATION: GENERAL: The patient is morbidly obese, not in acute distress. VITAL SIGNS: Temperature 37.8, pulse 77, respiratory rate 16, blood pressure 123/67, oxygen 96% on room air. HEENT: Pupils equal, round and reactive to light. Oral mucosa moist. NECK: Supple. CARDIOVASCULAR: S1 and S2 heard. Regular rate and rhythm. No murmur, no gallop. RESPIRATORY: Normal AP diameter. No accessory muscle use. No wheezing, no crackles. ABDOMEN: Soft, bowel sounds present, nontender, no distention. CENTRAL NERVOUS SYSTEM: Cranial nerves II-XII grossly intact, nonfocal. EXTREMITIES: No edema, no erythema. LABORATORY DATA: WBC 7.2, hemoglobin 14.3, hematocrit 42.9, platelets 113, PT 26.4, INR 2.8. Sodium 130, potassium 4.1, chloride 108, bicarbonate 26, BUN 22, creatinine 1.09, serum glucose 100, calcium 8.5, magnesium 2.2, total bilirubin 0.5, AST 22, ALT 30, alkaline phosphatase 50. Troponin-I 0.035. BNP 382. TSH 0.5. IMAGING DATA: Chest x-ray: Mild left lower lung opacities. This may reflect infectious process. EKG: Normal sinus rhythm, rate of 89, incomplete right bundle-branch block. ASSESSMENT AND PLAN: This is a 76-year-old male who presents with COVID illness. 1. COVID illness, Symptoms started last Monday. The patient is COVID vaccinated x2, last dose was on 03/24/2021 and he also received monoclonal antibodies in the ER in the mornings of 09/29/2021, came back because of feeling weakness in the legs, ambulatory dysfunction.Has mild temperature spike. Currently, saturating fine on room air. Does not qualify for remdesivir or steroids at this time. We will continue his home nebs and place him on nebs p.r.n. and closely monitor in the medical floor. 2. History of chronic obstructive pulmonary disease. Continue his home nebs and inhalers. 3. Diabetes. Continue his home NovoLog mix 70/30 insulin sliding scale. Hold his home p.o. medications. 4. Hypertension. Continue his losartan. We will monitor his blood pressure and also he is on Cardizem, we have to verify his Cardizem dose. 5. History of deep venous thrombosis and pulmonary embolism, on Coumadin, INR therapeutic follow PT/INR. 6. Deep venous thrombosis prophylaxis: On Coumadin, is therapeutic. DISPOSITION: Closely monitor in the medical floor. PT/OT prior to discharge. Social service to help with discharge planning. Job ID: [id number] [facility]
[2021-09-30] MEDS ORDERED: ACETAMINOPHEN 325 MG TAB PO PRN (02:49)
[2021-09-30] MEDS ORDERED: ALBUT/IPRATROP 3MG/0.5MG NEB 3 ML VIAL NEB PRN (02:49)
[2021-09-30] MEDS ORDERED: POLYETHYLENE (MIRALAX) 17 GM PACK PO PRN (02:49)
[2021-09-30] MEDS ORDERED: ONDANSETRON INJ 2 MG/ML 2 ML VIAL IV PRN (02:49)
[2021-09-30] MEDS ORDERED: ALBUTEROL HFA 8 GM INHALER INH PRN (02:49)
[2021-09-30] MEDS ORDERED: GLUCOSE 40% GEL 15 GM TUBE PO PRN (03:30)
[2021-09-30] MEDS ORDERED: GLUCAGON FOR INJ 1 MG VIAL IM PRN (03:30)
[2021-09-30] MEDS ORDERED: CARBOHYDRATES FOR HYPOGLYCEMIA PO PRN (03:30)
[2021-09-30] MEDS ORDERED: DEXTROSE 50% 50 ML SYRINGE IV PRN (03:30)
[2021-09-30] MEDS ORDERED: GLUCOSE 10 TABS/TUBE PO PRN (03:30)
[2021-09-30 06:19] LABS: Basophils # (auto) 0.01 K/uL (0-0.2); Basophils % (auto) 0.2 %; Eosinophils # (auto) 0.01 K/uL (0-0.5); Eosinophils % (auto) 0.2 %; Hematocrit (blood only) 40.7 % (42-52); Hemoglobin 14.1 g/dL (14.0-18.0); Immature Granulocytes # (auto) 0.01 K/uL (0.00-0.02); Immature Granulocytes % (auto) 0.2 %; Lymphocytes # (auto) 0.66 K/uL (1.2-3.4); Lymphocytes % (auto) 13.6 %; Mean Corpuscular Hemoglobin 33.3 pg (25-34); Mean Corpuscular Hgb Conc 34.6 g/dL (32-36); Mean Platelet Volume 10.3 fL (7.4-10.4); Monocytes # (auto) 0.69 K/uL (0.11-0.59); Monocytes % (auto) 14.2 %; Neutrophils # (auto) 3.47 K/uL (1.4-6.5); Neutrophils % (auto) 71.6 %; Platelet Count 102 K/uL (130-400); RDW Coefficient of Variation 15.5 % (11.5-14.5); RDW Standard Deviation 54.8 fL (36.4-46.3); Red Blood Count 4.24 M/uL (4.7-6.1); White Blood Count 4.85 K/uL (4.8-10.8)
[2021-09-30 06:36] LABS: INR 2.5 (0.9-1.1)
[2021-09-30 06:57] LABS: BUN Creatinine Ratio 22.6 (10-20); Calcium 8.4 mg/dl (8.5-10.1); Creatinine Clr Calc Pharmacy 91.3 ml/min; Est GFR (African American) 79.5 ml/min; Est GFR (Non-African American) 68.6 ml/min
[2021-09-30] MEDS: ALBUT/IPRATROP 3MG/0.5MG NEB 3 ML VIAL NEB SCH ×4 (07:56→19:39)
[2021-09-30 08:01] LABS: Estimated Average Glucose 123 mg/dl; Hemoglobin A1C 5.9 % (4.5-5.6)
[2021-09-30 08:11] LABS: Potassium 4.2 mmol/L (3.5-5.1)
[2021-09-30 08:15] LABS: Magnesium 2.4 mg/dl (1.8-2.4)
[2021-09-30] MEDS ORDERED: UMECLIDINIUM BROMIDE 62.5MCG/BLISTER 7 PUFFS/INHALER INH SCH ×2 (09:00→21:00)
[2021-09-30] MEDS ORDERED: FLUTICASONE/SALMETEROL 100/50 (ADVAIR) 14 PUFF/1 INHALER INH SCH (09:00)
[2021-09-30] MEDS ORDERED: PANTOprazole 40 MG TAB PO SCH (09:00)
[2021-09-30] MEDS ORDERED: FLUTICASONE/VILANTEROL 100/25MCG 14 PUFFS/INHALER INH SCH ×2 (09:00→21:00)
[2021-09-30] MEDS: INSULIN ASPART 100 UNITS/ML 3 ML PEN SC SCH ×4 (09:08→20:10)
[2021-09-30] MEDS: ASCORBIC ACID 500 MG TAB PO SCH (09:55)
[2021-09-30] MEDS: LOSARTAN POTASSIUM 50 MG TAB PO SCH (09:55)
[2021-09-30] MEDS: FLUTICASONE PROPIONATE NA SPR 16 GM BTL SCH (09:55)
[2021-09-30] MEDS: PANTOprazole 40 MG TAB PO SCH (09:56)
[2021-09-30] MEDS: FUROSEMIDE 20 MG TAB PO SCH (09:56)
[2021-09-30] MEDS: TAMSULOSIN HCL 0.4 MG CAP PO SCH (09:56)
[2021-09-30] MEDS: ZINC SULFATE 220 MG CAPSULE PO SCH (09:56)
[2021-09-30] MEDS: dilTIAZem HCL 180 MG CAPCR PO SCH (09:57)
[2021-09-30] MEDS ORDERED: Nursing to Pharmacy Communication SCH (10:00)
[2021-09-30] MEDS: INSULIN 70% ASPART PROTAMINE/30% ASPART SQ SCH (10:31)
[2021-09-30 10:46] LABS: Appearance Urine Clear (Clear); Bacteria Urine Automated Negative (Negative); Bilirubin Urine Negative (Negative); Blood Urine Negative (Negative); Cast Urine Automated 0 /lpf (0-5); Color Urine Yellow; Glucose Urine UA 3+ (Negative); Ketones Urine 1+ (Negative); Leukocyte Esterase Urine Negative (Negative); Nitrite Urine Negative (Negative); Protein Urine Trace (Negative); RBC Urine Automated 0-4 /hpf (0-4); Specific Gravity Urine 1.022 (1.000-1.030); Urobilinogen Urine Negative (Negative)
[2021-09-30] MEDS ORDERED: INSULIN 70% ASPART PROTAMINE/30% ASPART SQ SCH (16:30)
[2021-09-30] MEDS: WARFARIN SOD 5 MG TAB PO SCH (17:24)
--- NOTE | 2021-09-30 19:42 | Electrocardiogram Report ---
Test Reason : Blood Pressure : / mmHG Vent. Rate : 089 BPM Atrial Rate : 089 BPM P-R Int : 156 ms QRS Dur : 102 ms QT Int : 352 ms P-R-T Axes : 063 024 058 degrees QTc Int : 428 ms Normal sinus rhythm Low voltage QRS Incomplete right bundle branch block Borderline ECG When compared with ECG of 17-NOV-2019 09:33, Premature ventricular complexes are no longer Present QT has shortened Confirmed by Mikey Gunter ([id number]) on 09/30/2021 7:41:41 PM Referred By: REFERRED SELF Confirmed By:Mikey Gunter
[2021-09-30] MEDS ORDERED: SIMVASTATIN 40 MG TAB PO SCH (21:00)
[2021-09-30] MEDS ORDERED: FAMOTIDINE 20 MG TAB PO SCH (21:00)
[2021-10-01 06:00] LABS: INR 2.7 (0.9-1.1); Prothrombin Time 25.6 Seconds (9.0-12.0)
[2021-10-01] MEDS: ALBUT/IPRATROP 3MG/0.5MG NEB 3 ML VIAL NEB SCH ×3 (07:44→15:13)
[2021-10-01] MEDS: LOSARTAN POTASSIUM 50 MG TAB PO SCH (09:00)
[2021-10-01] MEDS: FUROSEMIDE 20 MG TAB PO SCH (09:00)
[2021-10-01] MEDS: FLUTICASONE PROPIONATE NA SPR 16 GM BTL SCH (09:00)
[2021-10-01] MEDS: dilTIAZem HCL 180 MG CAPCR PO SCH (09:00)
[2021-10-01] MEDS: TAMSULOSIN HCL 0.4 MG CAP PO SCH (09:00)
[2021-10-01] MEDS: PANTOprazole 40 MG TAB PO SCH (09:00)
[2021-10-01] MEDS: ASCORBIC ACID 500 MG TAB PO SCH (09:00)
[2021-10-01] MEDS: ZINC SULFATE 220 MG CAPSULE PO SCH (09:00)
[2021-10-01] MEDS: INSULIN 70% ASPART PROTAMINE/30% ASPART SQ SCH (09:02)
[2021-10-01] MEDS: INSULIN ASPART 100 UNITS/ML 3 ML PEN SC SCH ×2 (09:03→12:10)
--- NOTE | 2021-10-01 15:28 | Hospitalist Progress Note ---
Date of Service October 01, 2021 Assessment & Plan (1) COVID-19: Plan: Fully vaccinated Shortness of breath for the last 5 days prior to admission Remains asymptomatic except cough and does not require any oxygen Has had 2 step O2 saturation test and he does not require any oxygen with ambulation He did not require any treatment for Covid infection He will be discharged home this afternoon (2) Weakness: Plan: Has had physical therapy and recommended home (3) COPD (chronic obstructive pulmonary disease): Plan: No acute exacerbation Past 2 stepO2 saturation test (4) Diabetes mellitus, type 2: Plan: No acute issues (5) GERD (gastroesophageal reflux disease): Plan: Continue PPI (6) Hypertension: Plan: Remains controlled with medication (7) Personal history of deep vein thrombosis: Plan: INR is therapeutic and continue Coumadin Plan: We will discharge home this afternoon Admission and Anticipated Discharge Date Admission Date: September 30, 2021 Subjective 10/01/2021 The patient was seen and examined in medical telemetry unit and in the Covid room He remains totally asymptomatic from COVID-19 infection except minimal cough He does not require any oxygen at rest or with ambulation Has had physical therapy and did well Review of Systems Review of Systems: All systems reviewed and are unremarkable except as noted below Respiratory: Minimal cough but no shortness of breath Physical Exam Physical Exam: Lying in bed comfortably Constitutional: well developed, well nourished and + obese; not ill appearing Eyes: PERRL, conjunctivae normal, anicteric sclerae ENMT: external ear and nose normal, oropharynx normal Neck: trachea midline, no thyromegaly Respiratory: + cough (Minimal cough); no respiratory distress Auscultation: + diminished lung sounds; no crackles and no wheezes Cardiovascular: Rate/Rhythm: regular rate and regular rhythm; not tachycardic Heart Sounds: normal S1 and normal S2; no murmur Extremities: + edema (Trace edema bilaterally) Gastrointestinal (Abdomen): Inspection/Auscultation: normal bowel sounds; abdomen not distended Percussion/Palpation: abdomen soft; abdomen nontender Musculoskeletal: No acute arthritis in any joint Neurologic: Alert, awake and oriented x3. No focal sensory or motor deficit appreciated Psychiatric: A+Ox3, euthymic affect Lymphatic: no cervical or axillary lymphadenopathy Results & Data Results & Data ([facility]) Vital Signs (Past 12 Hours) Vital Signs Temp Pulse Pulse Pulse Pulse Resp Resp 10/01/21 15:19 79 18 10/01/21 15:13 90 92 H 79 20 10/01/21 11:54 10/01/21 11:52 10/01/21 11:01 80 18 10/01/21 07:59 36.9 C 78 16 10/01/21 07:44 83 18 10/01/21 04:27 36.8 C 79 16 Resp Resp BP Pulse Ox Pulse Ox Pulse Ox Pulse Ox 10/01/21 15:19 91 10/01/21 15:13 18 18 90 91 91 10/01/21 11:54 10/01/21 11:52 90 10/01/21 11:01 92 10/01/21 07:59 132/68 91 10/01/21 07:44 92 10/01/21 04:27 135/72 91 Pulse Ox 10/01/21 15:19 10/01/21 15:13 10/01/21 11:54 88 L 10/01/21 11:52 10/01/21 11:01 10/01/21 07:59 10/01/21 07:44 10/01/21 04:27 Medications Administered Current Inpatient Medications Acetaminophen (Acetaminophen 325 Mg Tab) 650 mg PO Q4H PRN PRN Reason: pain/fever Stop: 10/30/21 02:48 Albuterol (Albuterol Hfa 8 Gm Inhaler) 2 puffs INH QID PRN PRN Reason: SHORT OF BREATH Stop: 10/30/21 02:48 Albuterol (Albut/Ipratrop 3mg/0.5mg Neb 3 Ml Vial) 3 ml NEB QIDR [facility]CHEL Stop: 10/30/21 06:59 Last Admin: 10/01/21 15:13 Dose: 3 ml Documented by: Albuterol (Albut/Ipratrop 3mg/0.5mg Neb 3 Ml Vial) 3 ml NEB Q2H PRN PRN Reason: Shortness Of Breath Or Wheezing Stop: 10/30/21 02:48 Ascorbic Acid (Ascorbic Acid 500 Mg Tab) 500 mg PO DAILY [facility] Stop: 10/30/21 08:59 Last Admin: 10/01/21 09:00 Dose: 500 mg Documented by: Dextrose (Dextrose 50% 50 Ml Syringe) 25 - 50 ml IV UD PRN; Protocol PRN Reason: Hypoglycemia Protocol Stop: 10/30/21 03:29 Diltiazem HCl (Diltiazem Hcl 180 Mg Capcr) 180 mg PO QAM [facility] Stop: 10/30/21 08:59 Last Admin: 10/01/21 09:00 Dose: 180 mg Documented by: Famotidine (Famotidine 20 Mg Tab) 20 mg PO HS [facility] Stop: 10/30/21 20:59 Last Admin: 09/30/21 20:24 Dose: 20 mg Documented by: Fluticasone Propionate (Fluticasone Propionate Na Spr 16 Gm Btl) 1 sprays NA QAM [facility] Stop: 10/30/21 08:59 Last Admin: 10/01/21 09:00 Dose: 1 sprays Documented by: Fluticasone/Vilanterol (Fluticasone/Vilanterol 100/25mcg 14 Puffs/Inhaler) 1 puffs INH HS [facility] Stop: 10/30/21 20:59 Last Admin: 09/30/21 21:04 Dose: Not Given Documented by: Furosemide (Furosemide 20 Mg Tab) 20 mg PO DAILY [facility] Stop: 10/30/21 08:59 Last Admin: 10/01/21 09:00 Dose: 20 mg Documented by: Glucagon (Glucagon For Inj 1 Mg Vial) 1 mg IM UD PRN; Protocol PRN Reason: Hypoglycemia Protocol Stop: 10/30/21 03:29 Glucose (Glucose 40% Gel 15 Gm Tube) 15 - 30 gm PO UD PRN; Protocol PRN Reason: Hypoglycemia Protocol Stop: 10/30/21 03:29 Glucose (Glucose 10 Tabs/Tube) 4 - 8 tabs PO UD PRN; Protocol PRN Reason: Hypoglycemia Protocol Stop: 10/30/21 03:29 Insulin Aspart (Insulin 70% Aspart Protamine/30% Aspart) 36 units SQ QDB [facility] Stop: 10/30/21 07:29 Last Admin: 10/01/21 09:02 Dose: 36 units Documented by: Insulin Aspart (Insulin 70% Aspart Protamine/30% Aspart) 30 units SQ QDD [facility] Stop: 10/30/21 16:29 Last Admin: 09/30/21 17:52 Dose: 30 units Documented by: Insulin Aspart (Insulin Aspart 100 Units/Ml 3 Ml Pen) 0 units SC ACHS [facility] Stop: 10/30/21 07:29 Last Admin: 10/01/21 12:10 Dose: Not Given Documented by: Losartan Potassium (Losartan Potassium 50 Mg Tab) 50 mg PO DAILY [facility] Stop: 10/30/21 08:59 Last Admin: 10/01/21 09:00 Dose: 50 mg Documented by: Miscellaneous (Carbohydrates For Hypoglycemia ) 15 - 30 gm PO UD PRN PRN Reason: Hypoglycemia Treatment Stop: 10/30/21 03:29 Ondansetron HCl (Ondansetron Inj 2 Mg/Ml 2 Ml Vial) 4 mg IV Q6H PRN PRN Reason: Nausea Stop: 10/30/21 02:48 Pantoprazole Sodium (Pantoprazole 40 Mg Tab) 40 mg PO QAM [facility] Stop: 10/30/21 08:59 Last Admin: 10/01/21 09:00 Dose: 40 mg Documented by: Polyethylene Glycol (Polyethylene (Miralax) 17 Gm Pack) 17 gm PO DAILY PRN PRN Reason: Constipation Stop: 10/30/21 02:48 Simvastatin (Simvastatin 40 Mg Tab) 40 mg PO PM [facility] Stop: 10/30/21 20:59 Last Admin: 09/30/21 20:24 Dose: 40 mg Documented by: Tamsulosin HCl (Tamsulosin Hcl 0.4 Mg Cap) 0.4 mg PO DAILY [facility] Stop: 10/30/21 08:59 Last Admin: 10/01/21 09:00 Dose: 0.4 mg Documented by: Umeclidinium Tenstrike (Umeclidinium Tenstrike 62.5mcg/Blister 7 Puffs/Inhaler) 1 puffs INH HS [facility] Stop: 10/30/21 20:59 Last Admin: 09/30/21 20:24 Dose: 1 puffs Documented by: Warfarin Sodium (Warfarin Sod 5 Mg Tab) 5 mg PO DAILY@1600 [facility] Stop: 10/30/21 15:59 Last Admin: 09/30/21 17:24 Dose: 5 mg Documented by: Zinc Sulfate (Zinc Sulfate 220 Mg Capsule) 220 mg PO DAILY [facility] Stop: 10/30/21 08:59 Last Admin: 10/01/21 09:00 Dose: 220 mg Documented by: (1) COPD (chronic obstructive pulmonary disease) COPD type: unspecified COPD Qualified Code(s): J44.9 - Chronic obstructive p ulmonary disease, unspecified
[2021-10-01] MEDS: WARFARIN SOD 5 MG TAB PO SCH (16:12)
--- NOTE | 2021-10-02 09:33 | Discharge Summary ---
Date of Service October 02, 2021 Admission HPI Per Admitting Provider DICTATED BY:Conrad Sofia MD DATE OF ADMISSION: 09/30/2021. CHIEF COMPLAINT: COVID-19. HISTORY OF PRESENT ILLNESS: This is a 76-year-old male with past medical history significant for type 2 diabetes, diabetic polyneuropathy, hyperlipidemia, COPD, allergic rhinitis, deviated nasal septum, history of bilateral pulmonary embolism, deep venous thrombosis on Coumadin, hypertension, history of heart failure, history of accelerated junctional rhythm, obesity, GERD, paraesophageal hernia, primary osteoarthritis of right knee, presents from home because of not feeling well. The patient was having COVID symptoms since last Monday and Monday, he was diagnosed with COVID. He came to the ER in the morning with COVID symptoms and was saturating fine. He was given a monoclonal antibody and was sent home. The patient after going home, he was feeling very weak. His legs were giving away and has some back pain. Has some ambulatory dysfunction, not feeling well, so he came here. When EMS arrived to his house, he was saturating 85% and also in the ER at one point of time he required oxygen, but currently saturating fine on room air after getting neb treatments. Currently, resting comfortably and hemodynamically stable. Denies any headache. No blurred visions, no earache, no runny nose, has some sore throat and has some cough. Has mild temperature spike in the ER. Denies any chest pain, denies any shortness of breath. Currently, denies any nausea, no abdominal pain, no diarrhea, no constipation. Normal bowel and bladder incontinence, says he has some imbalance while ambulating. Admission Exam Per Admitting Provider GENERAL: The patient is morbidly obese, not in acute distress. VITAL SIGNS: Temperature 37.8, pulse 77, respiratory rate 16, blood pressure 123/67, oxygen 96% on room air. HEENT: Pupils equal, round and reactive to light. Oral mucosa moist. NECK: Supple. CARDIOVASCULAR: S1 and S2 heard. Regular rate and rhythm. No murmur, no gallop. RESPIRATORY: Normal AP diameter. No accessory muscle use. No wheezing, no crackles. ABDOMEN: Soft, bowel sounds present, nontender, no distention. CENTRAL NERVOUS SYSTEM: Cranial nerves II-XII grossly intact, nonfocal. EXTREMITIES: No edema, no erythema. Principal Diagnosis COVID-19 virus infection without any significant symptoms, status post full vaccination, COPD without exacerbation, history of pulmonary embolism and DVT Discharge Exam Lying in bed comfortably Constitutional well developed, well nourished and + obese; not ill appearing Eyes PERRL, conjunctivae normal, anicteric sclerae ENMT external ear and nose normal, oropharynx normal Neck trachea midline, no thyromegaly Respiratory + cough (Minimal cough); no respiratory distress Auscultation: + diminished lung sounds; no crackles and no wheezes Cardiovascular Rate/Rhythm: regular rate and regular rhythm; not tachycardic Heart Sounds: normal S1 and normal S2; no murmur Extremities: + edema (Trace edema bilaterally) Gastrointestinal (Abdomen) Inspection/Auscultation: normal bowel sounds; abdomen not distended Percussion/Palpation: abdomen soft; abdomen nontender Psychiatric A+Ox3, euthymic affect Lymphatic no cervical or axillary lymphadenopathy Discharge Data Allergies Allergy/AdvReac Type Severity Reaction Status Date / Time Penicillins Allergy Intermediate Hives Verified 09/29/21 20:34 adhesive tape Allergy Mild WATER Verified 09/29/21 20:34 BLISTERS latex Allergy Mild WATER Verified 09/29/21 20:34 BLISTERS Hospital Course (1) COVID-19: Fully vaccinated Shortness of breath for the last 5 days prior to admission Remains asymptomatic except cough and does not require any oxygen Has had 2 step O2 saturation test and he does not require any oxygen with ambulation He did not require any treatment for Covid infection He will be discharged home this afternoon (2) Weakness: Has had physical therapy and recommended home (3) COPD (chronic obstructive pulmonary disease): No acute exacerbation Past 2 stepO2 saturation test (4) Diabetes mellitus, type 2: No acute issues (5) GERD (gastroesophageal reflux disease): Continue PPI (6) Hypertension: Remains controlled with medication (7) Personal history of deep vein thrombosis: INR is therapeutic and continue Coumadin We will discharge home this afternoon Total Time Total Time Spent Total Time Spent (In Minutes): 35 minutes Discharge Plan Discharge Items Patient Disposition: Home - Self-Care Reason For Visit: ILLNESS Discharge Diagnosis: COVID-19 virus infection without any significant symptoms, status post full vaccination, COPD without exacerbation, history of pulmonary embolism and DVT Condition on Discharge: Good Activity: Resume your previous activity Non-emergency contact: Primary Care Provider Call non-emergency contact if: you have any medication questions, your symptoms worsen and your temperature is above 101.5 Follow-up/Referrals: Victorino Abdi MD [Primary Care Provider] - (Date & Time 10/05/2021 1:40 PM Provider Victorino Abdi Department [facility] PLEASE NOTE THAT THIS IS A TELEMEDICINE APPOINTMENT. PLEASE FOLLOW THE INSTRUCTIONS PROVIDED IN YOUR EMAIL. IF YOU HAVE ANY QUESTIONS REGARDING THIS APPOINTMENT, PLEASE CALL ) Diet: Carb Consistent or DM2 Addtl Attending Provider Instructions: Please take precautions to avoid fall Try to maintain isolation precaution for 8 more days as per CDC guideline below: No change in new medications and you can take some [id number]-rmw-[id number] cough medicine as needed Please keep appointment with your PCP. Home Isolation COVID-19 Instructions The following information about Home Isolation is from the CDC Website: https://www.cdc.gov/coronavirus/2019-ncov/hcp/yjujkryn-bnuahnm-xjrwpy.html Stay home except to get medical care People who are mildly ill with COVID-19 are able to isolate at home during their illness. You should restrict activities outside your home, except for getting medical care. Do not go to work, school, or public areas. Avoid using public transportation, ride-sharing, or taxis. Separate yourself from other people and animals in your home People: As much as possible, you should stay in a specific room and away from other people in your home. Also, you should use a separate bathroom, if available. Animals: You should restrict contact with pets and other animals while you are sick with COVID-19, just like you would around other people. Although there have not been reports of pets or other animals becoming sick with COVID-19, it is still recommended that people sick with COVID-19 limit contact with animals until more information is known about the virus. When possible, have another member of your household care for your animals while you are sick. If you are sick with COVID-19, avoid contact with your pet, including petting, snuggling, being kissed or licked, and sharing food. If you must care for your pet or be around animals while you are sick, wash your hands before and after you interact with pets and wear a face mask. Call ahead before visiting your doctor If you have a medical appointment, call the healthcare provider and tell them that you have or may have COVID-19. This will help the healthcare providers office take steps to keep other people from getting infected or exposed. Wear a face mask You should wear a face mask when you are around other people (e.g., sharing a room or vehicle) or pets and before you enter a healthcare providers office. If you are not able to wear a face mask (for example, because it causes trouble breathing), then people who live with you should not stay in the same room with you, or they should wear a face mask if they enter your room. Cover your coughs and sneezes Cover your mouth and nose with a tissue when you cough or sneeze. Throw used tissues in a lined trash can. Immediately wash your hands with soap and water for at least 20 seconds or, if soap and water are not available, clean your hands with an alcohol-based hand computer forensic specialist that contains at least 60% alcohol. Clean your hands often Wash your hands often with soap and water for at least 20 seconds, especially after blowing your nose, coughing, or sneezing; going to the bathroom; and before eating or preparing food. If soap and water are not readily available, use an alcohol-based hand computer forensic specialist with at least 60% alcohol, covering all surfaces of your hands and rubbing them together until they feel dry. Soap and water are the best option if hands are visibly dirty. Avoid touching your eyes, nose, and mouth with unwashed hands. Avoid sharing personal household items You should not share dishes, drinking glasses, cups, eating utensils, towels, or bedding with other people or pets in your home. After using these items, they should be washed thoroughly with soap and water. Clean all high-touch surfaces everyday High touch surfaces include counters, tabletops, doorknobs, bathroom fixtures, toilets, phones, keyboards, tablets, and bedside tables. Also, clean any surfa brisa that may have blood, stool, or body fluids on them. Use a household cleaning spray or wipe, according to the label instructions. Labels contain instructions for safe and effective use of the cleaning product including precautions you should take when applying the product, such as wearing gloves and making sure you have good ventilation during use of the product. Monitor your symptoms Seek prompt medical attention if your illness is worsening (e.g., difficulty breathing).Beforeseeking care, call your healthcare provider and tell them that you have, or are being evaluated for, COVID-19. Put on a face mask before you enter the facility. These steps will help the healthcare providers office to keep other people in the office or waiting room from getting infected or exposed. Ask your healthcare provider to call the local or state health department. Persons who are placed under active monitoring or facilitated self- monitoring should follow instructions provided by their local health department or occupational health professionals, as appropriate. When working with your local health department check their available hours. If you have a medical emergency and need to call 911, notify the dispatch personnel that you have, or are being evaluated for COVID-19. If possible, put on a face mask before emergency medical services arrive. Discontinuing home isolation Patients with confirmed COVID-19 should remain under home isolation precautions until the risk of secondary transmission to others is thought to be low. The decision to discontinue home isolation precautions should be made on a auhl-ta-frxn basis, in consultation with healthcare providers and [facility] health departments. Pending Studies at Discharge: No Stand-Alone Forms: [facility], Smoking Cessation Medications and DC Order Prescriptions: Continued ascorbic acid (vitamin C) [Vitamin C] 500 mg Tablet 500 mg PO DAILY RF: 0 tamsulosin [Flomax] 0.4 mg Capsule 0.4 mg PO DAILY RF: 0 zinc 50 mg Tablet 50 mg PO DAILY RF: 0 furosemide [Lasix] 20 mg Tablet 20 mg PO DAILY RF: 0 polyethylene glycol 3350 [Miralax] 17 gram/dose Powder 17 g PO DAILY PRN (Reason: Constipation) RF: 0 albuterol sulfate [Ventolin HFA] 90 mcg/actuation Hfa Aerosol Inhaler 2 puff INHALATION QID PRN (Reason: SHORT OF BREATH) RF: 0 fluticasone propionate [Flonase Allergy Relief] 50 mcg/actuation [place],S uspension 1 spray INTRANASAL QAM RF: 0 insulin asp prt-insulin aspart [Novolog Mix 70-30 U-100 Insuln] 100 unit/mL (70-30) Solution 36 unit subcut DAILY RF: 0 omeprazole magnesium [Prilosec OTC] 20 mg Tablet,Delayed Release (Dr/Ec) 20 mg PO QAM RF: 0 Spiriva with HandiHaler 18 mcg Capsule, W/Inhalation Device 1 cap INHALATION QAM RF: 0 omega 2-lcp-rwy-fish oil [Fish Oil] 1,000 mg (120 mg-180 mg) Capsule 1 cap PO DAILY RF: 0 Tradjenta 5 mg Tablet 5 mg PO QAM RF: 0 Jardiance 25 mg Tablet 25 mg PO QAM RF: 0 insulin asp prt-insulin aspart [Novolog Mix 70-30FlexPen U-100] 100 unit/mL (70-30) insulin pen 30 unit SUBCUT HS RF: 0 Breo Ellipta 100-25 mcg/dose blister with device 1 inh INHALATION BID RF: 0 ipratropium-albuterol 0.5 mg-3 mg(2.5 mg base)/3 mL Solution For Nebulization 3 ml NEB QIDR Qty: 1 RF: 0 simvastatin 40 mg Tablet 40 mg PO PM Qty: 1 RF: 0 famotidine 20 mg Tablet 20 mg PO HS Qty: 10 RF: 0 pantoprazole 40 mg Tablet,Delayed Release (Dr/Ec) 40 mg PO QAM Qty: 1 RF: 0 fluticasone propion-salmeterol [Advair Diskus] 100-50 mcg/dose Blister With Device 1 puff inhalation BID Qty: 1 RF: 0 losartan 50 mg tablet 50 mg PO DAILY RF: 0 warfarin 5 mg tablet 5 mg PO DAILY@1600 RF: 0 Discharge Orders: Discharge Order (Routine); Ordered 10/01/21 Ordered By: Raoul Christianson Admission Data Admit Date/Time: 09/30/21 00:27 Attending Provider: Raoul Christianson Admit Provider: Conrad Sofia Primary Care Provider: Victorino Abdi Other Interventions: Discharge Summary Assessment (RN) Last Done: 10/01/21 15:29
== END 2021-10-01 17:36 | disposition home or self-care (01) | DRG 179 ==
LOC: ED 18:33 → 2W 09-30 00:27
DX: Z86.718 Personal history of other venous thrombosis and embolism; Z68.39 Body mass index [BMI] 39.0-39.9, adult; Z91.040 Latex allergy status; Z87.891 Personal history of nicotine dependence; Z79.01 Long term (current) use of anticoagulants; Z79.84 Long term (current) use of oral hypoglycemic drugs; J44.9 Chronic obstructive pulmonary disease, unspecified; I50.9 Heart failure, unspecified; Z86.711 Personal history of pulmonary embolism; E11.42 Type 2 diabetes mellitus with diabetic polyneuropathy; Z91.048 Other nonmedicinal substance allergy status; E78.5 Hyperlipidemia, unspecified; K21.9 Gastro-esophageal reflux disease without esophagitis; Z83.3 Family history of diabetes mellitus; Z82.49 Family history of ischemic heart disease and other diseases of the circulatory system; Z79.899 Other long term (current) drug therapy; N40.0 Benign prostatic hyperplasia without lower urinary tract symptoms; Z88.0 Allergy status to penicillin; Z23 Encounter for immunization; Z79.4 Long term (current) use of insulin; M19.90 Unspecified osteoarthritis, unspecified site; I11.0 Hypertensive heart disease with heart failure; E66.9 Obesity, unspecified; U07.1 COVID-19